=== PATIENT | female | born 1950 | race Hispanic/Latino ===

== ENCOUNTER 2017-03-25 08:31 | Emergency (ER) | payer OTHER ==
[2017-03-25 08:32] VITALS: BMI 34.5
[2017-03-25] MEDS ORDERED: Sodium Chloride 0.9% 1,000 ML IV ONE (08:57)
--- NOTE | 2017-03-25 09:18 | C.PDOC ---
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 Patient states the dizziness is worse with head movement. Reports history of HTN. Denies fever, vision changes, nausea, vomiting, head injury, weakness or numbness. Time Seen by Provider: 03/25/17 08:42 Chief Complaint (Nursing): Dizziness/Lightheaded History Per: Patient History/Exam Limitations: no limitations Onset/Duration Of Symptoms: Sudden Onset (While at work) Current Symptoms Are (Timing): Still Present Past Medical History Reviewed: Historical Data, Nursing Documentation, Vital Signs Vital Signs: Last Vital Signs Temp 97.6 F 03/25/17 11:10 Pulse 60 03/25/17 11:10 Resp 18 03/25/17 11:10 BP 126/78 03/25/17 11:10 Pulse Ox 96 03/25/17 11:10 - Medical History PMH: Asthma, CVA, HTN, Hypercholesterolemia Surgical History: Endoscopy - [facility] Procedures APPLICATION OF SPLINT (12/13/05) DX ULTRASOUND-HEAD/NECK (12/11/14) ENDOSCOPIC CONTROL OF GASTRIC OR DUODENAL BLEEDING (09/30/13) ESOPHAGOGASTRODUODENOSCOPY [EGD] W/CLOSED BIOPSY (09/30/13) PERCUTAN NEEDLE BX OF THYROID GLAND (12/11/14) TETANUS TOXOID ADMINIST (12/12/05) Family History: States: No Known Family Hx - Social History Hx Tobacco Use: No Hx Alcohol Use: No Hx Substance Use: No - Immunization History Hx Tetanus Toxoid Vaccination: No Hx Influenza Vaccination: Yes Hx Pneumococcal Vaccination: No Review Of Systems Except As Marked, All Systems Reviewed And Found Negative. Constitutional: Negative for: Fever Eyes: Negative for: Vision Change Gastrointestinal: Negative for: Nausea, Vomiting Neurological: Positive for: Dizziness. Negative for: Weakness, Numbness Physical Exam - Physical Exam Appears: Well, Non-toxic, No Acute Distress Skin: Warm, Dry Head: Atraumatic, Normacephalic Eye(s): bilateral: Normal Inspection, PERRL, EOMI Oral Mucosa: Moist Neck: Normal, Normal ROM, No Midline Cervical Tenderness, Supple Chest: Symmetrical, No Tenderness Cardiovascular: Rhythm Regular, No Murmur Respiratory: Normal Breath Sounds, No Rales, No Wheezing Extremity: Normal ROM, No Swelling Neurological/Psych: Oriented x3, Normal Speech, Normal Motor ED Course And Treatment - Laboratory Results Result Diagrams: 03/25/17 09:16 03/25/17 09:16 Lab Interpretation: Normal ECG: Interpreted By Me ECG Rhythm: Sinus Rhythm ECG Interpretation: Normal Rate From EC O2 Sat by Pulse Oximetry: 97 (RA) Pulse Ox Interpretation: Normal - CT Scan/US CT - Head Other Rad Studies (CT/US): Read By Radiologist, Radiology Report Reviewed CT/US Interpretation: PROCEDURE: CT HEAD WITHOUT CONTRAST. HISTORY: R/O Bleed. COMPARISON: Comparison made with prior CT scan brain 09/16/2016. . TECHNIQUE: Axial computed tomography images were obtained through the head/ brain without intravenous contrast. Radiation dose: Total exam DLP = 964.63 mGy-cm. This CT exam was performed using one or more of the following dose reduction techniques: Automated exposure control, adjustment of the mA and/or kV according to patient size, and/or use of iterative reconstruction technique. FINDINGS: HEMORRHAGE: No intracranial hemorrhage. BRAIN: Moderate - significant chronic microvascular ischemic changes seen extending peripherally into the deep and subcortical white matter both cerebral hemispheres. There is also extension of these changes into the white matter tracts of both basal nuclei. . No localized area of the suspect encephalomalacia left lateral cerebellar hemisphere subjacent to a craniectomy and cranioplasty vomiting the right lateral occipital calvarium. . Clinical correlation with surgical history recommended. VENTRICLES: No evidence of obstructive hydrocephalus. CALVARIUM : Calvarium otherwise appears intact. PARANASAL SINUSES: Frontal sinuses are hypoplastic. The remaining visualized paranasal sinuses are relatively well- developed. Minor mucosal thickening within the ethmoid air complex. No significant inflammatory changes. MASTOID AIR CELLS: Unremarkable as visualized. No inflammatory changes. OTHER FINDINGS: None. IMPRESSION: No acute intracranial hemorrhage. Moderate - significant chronic microvascular ischemic changes seen extending peripherally into the deep and subcortical white matter both cerebral hemispheres. There is also direct heart revealed toxicity resulting from a coxa and were visible on two views go go any further [place] will probably be region now para-aortic the buttock extension of these changes into the white matter tracts of both basal nuclei. . No localized area of the suspect encephalomalacia left lateral cerebellar hemisphere subjacent to a craniectomy and cranioplasty involving the right lateral occipital calvarium. . Clinical correlation with surgical history recommended. Progress Note: Treated with IVF NSS and meclizine PO. On re-evaluation feeling better, ambulating with steady gait, neuro intact Reassessment Condition: Improved Medical Decision Making Medical Decision Making: PLAN: * CT - Head * EKG * CBC * CMP * Urinalysis * Meclizine PO * Sodium Chloride IV Disposition Counseled Patient/Family Regarding: Studies Performed, Diagnosis, Need For Followup, Rx Given - Disposition Referrals: Rogelio Stewart MD [Staff Provider] - Disposition: HOME/ ROUTINE Disposition Time: 10:20 Condition: IMPROVED Additional Instructions: Follow up with PMD for further evaluation Prescriptions: Meclizine [Meclizine*] 25 mg PO Q8 PRN #10 tab PRN Reason: Dizziness Instructions: Dizziness (ED) Forms: Work Excuse - POA Present On Arrival: None - Clinical Impression Clinical Impression: Dizziness - PA / [employer]ENCE [employer] / Resident Statement MD/DO has reviewed & agrees with the documentation as recorded. - Scribe Statement The provider has reviewed the documentation as recorded by the Scribe Sweta Virgen All medical record entries made by the Scribe were at my direction and personally dictated by me. I have reviewed the chart and agree that the record accurately reflects my personal performance of the history, physical exam, medical decision making, and the department course for this patient. I have also personally directed, reviewed, and agree with the discharge instructions and disposition.
[2017-03-25 09:20] LABS: BASO % 0.6 % (0.0-2.0); EOS # 0.1 K/uL (0.0-0.7); EOS % 1.9 % (0.0-4.0); HEMATOCRIT 44.9 % (34.0-47.0); LYMPH % 29.2 % (20.0-40.0); MEAN CELL VOLUME 85.2 fL (81.0-99.0); MEAN CORPUSCULAR HGB CONC 32.9 g/dL (33.0-37.0); MONO # 0.7 K/uL (0.0-0.8); MONO % 10.7 % (0.0-10.0); RED CELL DISTRIBUTION WIDTH 13.1 % (11.5-14.5); WHITE BLOOD COUNT 6.9 K/uL (4.8-10.8)
[2017-03-25 09:24] LABS: RBC URINE 4 /hpf (0-3); URINE BACTERIA MANY (<OCC); URINE BILIRUBIN NEGATIVE (NEGATIVE); URINE BLOOD NEGATIVE (NEGATIVE); URINE COLOR Yellow (YELLOW); URINE GLUCOSE (UA) NORMAL (Normal); URINE HYALINE CAST 0-2 /lpf (0-2); URINE KETONE NEGATIVE (NEGATIVE); URINE LEUKOCYTE ESTERASE NEG Leu/uL (Negative); URINE PROTEIN NEGATIVE (NEGATIVE); URINE UROBILINOGEN NORMAL mg/dL (0.2-1.0); WBC URINE 2 /hpf (0-5)
[2017-03-25 09:31] LABS: CHLORIDE 106 mmol/L (98-107); POTASSIUM 3.5 mmol/L (3.6-5.2); SODIUM 142 mmol/L (132-148)
[2017-03-25 09:33] LABS: ALB/GLOB RATIO 1.2 (1.0-2.1); ALKALINE PHOSPHATASE 78 U/L (38-126); AST/SGOT 18 U/L (14-36); BILIRUBIN,TOTAL 0.6 mg/dL (0.2-1.3); CARBON DIOXIDE 26 mmol/L (22-30); GFR AFRICAN-AMERICAN > 60; TOTAL PROTEIN 6.8 g/dL (6.3-8.3)
[2017-03-25 09:34] LABS: ALT/SGPT 21 U/L (9-52); BLOOD UREA NITROGEN 20 mg/dL (7-17); CALCIUM 9.1 mg/dl (8.6-10.4); GLUCOSE,RANDOM 108 mg/dL (65-105)
--- NOTE | 2017-03-25 09:49 | CT ---
PROCEDURE: CT HEAD WITHOUT CONTRAST. HISTORY: R/O Bleed COMPARISON: Comparison made with prior CT scan brain 09/16/2016. . TECHNIQUE: Axial computed tomography images were obtained through the head/brain without intravenous contrast. Radiation dose: Total exam DLP = 964.63 mGy-cm. This CT exam was performed using one or more of the following dose reduction techniques: Automated exposure control, adjustment of the mA and/or kV according to patient size, and/or use of iterative reconstruction technique. FINDINGS: HEMORRHAGE: No intracranial hemorrhage. BRAIN: Moderate - significant chronic microvascular ischemic changes seen extending peripherally into the deep and subcortical white matter both cerebral hemispheres. There is also extension of these changes into the white matter tracts of both basal nuclei. . No localized area of the suspect encephalomalacia left lateral cerebellar hemisphere subjacent to a craniectomy and cranioplasty vomiting the right lateral occipital calvarium. . Clinical correlation with surgical history recommended. VENTRICLES: No evidence of obstructive hydrocephalus. CALVARIUM: Calvarium otherwise appears intact. PARANASAL SINUSES: Frontal sinuses are hypoplastic. The remaining visualized paranasal sinuses are relatively well-developed. Minor mucosal thickening within the ethmoid air complex. No significant inflammatory changes. MASTOID AIR CELLS: Unremarkable as visualized. No inflammatory changes. OTHER FINDINGS: None. IMPRESSION: No acute intracranial hemorrhage. Moderate - significant chronic microvascular ischemic changes seen extending peripherally into the deep and subcortical white matter both cerebral hemispheres. There is also extension of these changes into the white matter tracts of both basal nuclei. . No localized area of the suspect encephalomalacia left lateral cerebellar hemisphere subjacent to a craniectomy and cranioplasty involving the right lateral occipital calvarium. . Clinical correlation with surgical history recommended.
[2017-03-25 11:11] VITALS: BP 126/78; PULSE 60; RESP 18; TEMP 97.6
[2017-03-25 11:26] VITALS: O2SAT 97
--- NOTE | 2017-03-26 19:01 | CARD ---
APPROVED REPORT EKG Measurement Heart [id number] <Conclusion> Normal sinus rhythm Normal ECG
== END 2017-03-25 11:40 | disposition home or self-care (01) ==
LOC: C.ER 08:31
DX: R42 Dizziness and giddiness (principal)
CPT/HCPCS: 70450; 80053; 81001; 82948; 85025; 93005; 96360; 99285; J7040

== ENCOUNTER 2017-05-18 10:24 | Inpatient (IN) | payer OTHER, MEDICARE ==
[2017-05-18 10:24] VITALS: BMI 34.5
--- NOTE | 2017-05-18 10:47 | C.PDOC ---
History Of Present Illness 67 y/o FEMALE PRESENTS TO ED WITH C/O NEW ONSET INTERMITTENT LEFT SIDED CHEST PAIN FOR 2 DAYS. PT REPORTS NO EXACERBATING/MODIFYING FACTORS FOR PAIN - WAS PRESENT AT REST, NOT WORSE WITH EXERTION. PT ALSO REPORTS SHE HAD NEAR-SYNCOPAL EPISODE ON THURSDAY (3 DAYS AGO) BUT NOTES SHE DID NOT PASS OUT AND FELT DIFFERENT FROM VERTIGO DIZZINESS. DENIES SOB, NAUSEA, VOMITING, FEVER, CHILLS. DENIES PAST CARDIAC HISTORY. Time Seen by Provider: 05/18/17 10:36 Chief Complaint (Nursing): Chest Pain History Per: Patient History/Exam Limitations: no limitations Onset/Duration Of Symptoms: Days, Intermittent Episodes Current Symptoms Are (Timing): Better Associated Symptoms: denies: Nausea, Dyspnea, Diaphoresis, Syncope Exacerbating Factors: None Recent travel outside of the [place]: No Past Medical History Reviewed: Historical Data, Nursing Documentation, Vital Signs Vital Signs: Last Vital Signs Temp 97.9 F 05/18/17 10:25 Pulse 65 05/18/17 12:24 Resp 18 05/18/17 12:24 BP 111/58 L 05/18/17 12:24 Pulse Ox 98 05/18/17 12:24 - Medical History PMH: Asthma, CVA, HTN, Hypercholesterolemia Surgical History: Endoscopy - [facility] Procedures APPLICATION OF SPLINT (12/13/05) DX ULTRASOUND-HEAD/NECK (12/11/14) ENDOSCOPIC CONTROL OF GASTRIC OR DUODENAL BLEEDING (09/30/13) ESOPHAGOGASTRODUODENOSCOPY [EGD] W/CLOSED BIOPSY (09/30/13) PERCUTAN NEEDLE BX OF THYROID GLAND (12/11/14) TETANUS TOXOID ADMINIST (12/12/05) Family History: States: Unknown Family Hx - Social History Hx Tobacco Use: No Hx Alcohol Use: No Hx Substance Use: No - Immunization History Hx Tetanus Toxoid Vaccination: No Hx Influenza Vaccination: Yes Hx Pneumococcal Vaccination: No Review Of Systems Except As Marked, All Systems Reviewed And Found Negative. Constitutional: Negative for: Fever, Chills Cardiovascular: Positive for: Chest Pain. Negative for: Palpitations Respiratory: Negative for: Cough, Shortness of Breath Skin: Negative for: Rash Neurological: Negative for: Headache, Dizziness Physical Exam - Physical Exam Appears: Non-toxic, No Acute Distress Skin: Normal Color, Warm, Dry Head: Atraumatic, Normacephalic Oral Mucosa: Moist Chest: Symmetrical Cardiovascular: Rhythm Regular, No Murmur Respiratory: Normal Breath Sounds, No Rales, No Rhonchi, No Wheezing Gastrointestinal/Abdominal: Soft, No Tenderness Back: Normal Inspection Neurological/Psych: Oriented x3, Normal Speech, Normal Cognition ED Course And Treatment - Laboratory Results Result Diagrams: 05/18/17 11:30 05/18/17 11:30 ECG: Interpreted By Wy ECG Rhythm: Sinus Rhythm ECG Interpretation: No Changes From Prior Interpretation Of EC03/25/17 Rate From EC O2 Sat by Pulse Oximetry: 95 Pulse Ox Interpretation: Normal - Radiology CXR: Interpreted by Me CXR Interpretation: Yes: No Acute Disease - CT Scan/US CT HEAD Other Rad Studies (CT/US): Read By Radiologist, Radiology Report Reviewed CT/US Interpretation: IMPRESSION: No acute intracranial hemorrhage. Persistent localized encephalomalacia changes right lateral cerebellar hemisphere subjacent to a right occipital/ suboccipital craniectomy defect unchanged. Moderate significant chronic white matter ischemic changes. Moderate volume loss. Progress - Re-Evaluation Re-evaluation Note: 05/18/17 12:04 D/W DR KILLIAN. AWARE OF ER FINDINGS, REQUESTS ADMISSION TO HOSP. WILL CONSULT 05/18/17 12:07 CO RECUR CP. VSS D/W DR ANDERSEN WILL ADMIT 05/18/17 12:15 REPEAT EKG NSR @ 64 UNCH PRIOR - Data Reviewed Data Reviewed: Lab, Diagnostic imaging, EKG, Old records Disposition Counseled Patient/Family Regarding: Studies Performed, Diagnosis - Disposition Disposition: HOME/ ROUTINE Disposition Time: 12:07 Condition: STABLE - POA Present On Arrival: None - Clinical Impression Clinical Impression: Chest pain - Scribe Statement The provider has reviewed the documentation as recorded by the Scribe SM All medical record entries made by the Scribe were at my direction and personally dictated by me. I have reviewed the chart and agree that the record accurately reflects my personal performance of the history, physical exam, medical decision making, and the department course for this patient. I have also personally directed, reviewed, and agree with the discharge instructions and disposition. Decision To Admit - Pt Status Changed To: Hospital Disposition Of: Observation - . Bed Request Type: Telemetry Admitting Physician: Tam Andersen Patient Diagnosis: Chest pain
--- NOTE | 2017-05-18 11:15 | RAD ---
HISTORY: chest pain COMPARISON: Comparison chest 08/22/2016 TECHNIQUE: Chest PA and lateral FINDINGS: LUNGS: Poor inspiration with low lung volumes, crowded bronchovascular markings and mild bibasilar atelectasis. PLEURA: No significant pleural effusion identified. No pneumothorax apparent. CARDIOVASCULAR: Heart size upper limits of normal borderline enlarged. OSSEOUS STRUCTURES: Mild multilevel degenerative spondylosis of thoracic spine. Minor chronic anterior wedge deformities of a few thoracic segments VISUALIZED UPPER ABDOMEN: Normal. OTHER FINDINGS: None. IMPRESSION: Poor inspiration with low lung volumes, crowded bronchovascular markings and mild bibasilar atelectasis.
[2017-05-18 11:38] LABS: BASO % 0.6 % (0.0-2.0); EOS # 0.1 K/uL (0.0-0.7); EOS % 1.9 % (0.0-4.0); HEMATOCRIT 44.5 % (34.0-47.0); LYMPH % 28.3 % (20.0-40.0); MEAN CELL VOLUME 84.5 fL (81.0-99.0); MEAN CORPUSCULAR HGB CONC 33.2 g/dL (33.0-37.0); MEAN PLATELET VOLUME 8.5 fL (7.2-11.7); MONO # 0.6 K/uL (0.0-0.8); MONO % 9.3 % (0.0-10.0); RED CELL DISTRIBUTION WIDTH 13.3 % (11.5-14.5)
[2017-05-18 11:42] LABS: CHLORIDE 100 mmol/L (98-107); POTASSIUM 4.7 mmol/L (3.6-5.2); SODIUM 135 mmol/L (132-148)
[2017-05-18 11:44] LABS: ALB/GLOB RATIO 1.1 (1.0-2.1); AST/SGOT 24 U/L (14-36); BILIRUBIN,TOTAL 0.6 mg/dL (0.2-1.3); BLOOD UREA NITROGEN 20 mg/dL (7-17); CARBON DIOXIDE 29 mmol/L (22-30); GFR AFRICAN-AMERICAN > 60; TOTAL PROTEIN 7.1 g/dL (6.3-8.3)
[2017-05-18 11:45] LABS: ALKALINE PHOSPHATASE 80 U/L (38-126); ALT/SGPT 29 U/L (9-52); CALCIUM 9.3 mg/dl (8.6-10.4); GLUCOSE,RANDOM 102 mg/dL (65-105)
--- NOTE | 2017-05-18 12:00 | CT ---
PROCEDURE: CT HEAD WITHOUT CONTRAST. HISTORY: DIZZY, CHEST PAIN COMPARISON: Comparison made with CT scan brain 03/25/2017 and MRI of the brain dated 10/28/2019 is TECHNIQUE: Axial computed tomography images were obtained through the head/brain without intravenous contrast. Radiation dose: Total exam DLP = 873.37 mGy-cm. This CT exam was performed using one or more of the following dose reduction techniques: Automated exposure control, adjustment of the mA and/or kV according to patient size, and/or use of iterative reconstruction technique. FINDINGS: HEMORRHAGE: No acute parenchymal, subarachnoid nor extra-axial hemorrhage. BRAIN: Previously noted moderate -significant diffuse/confluent chronic white matter ischemic changes of that extend peripherally into the deep and subcortical white matter as well as the white matter tracts of both basal nuclei are again noted though less well delineated on this exam as compared to prior MRI. . Re- demonstrated is localized encephalomalacia right lateral cerebellar hemisphere subjacent to a right occipital/suboccipital the craniectomy and/cranioplasty defect unchanged Moderate volume loss. VENTRICLES: No evidence of obstructive hydrocephalus. CALVARIUM: Calvarium otherwise appears intact. PARANASAL SINUSES: Frontal sinuses hypoplastic unchanged. Remaining visualized paranasal sinuses well-developed. There appears be some minor mucosal thickening both maxillary antra as [place] well as a few ethmoid air cells. MASTOID AIR CELLS: Unremarkable as visualized. No inflammatory changes. OTHER FINDINGS: Changes of bilateral cataract surgery again noted. IMPRESSION: No acute intracranial hemorrhage. Persistent localized encephalomalacia changes right lateral cerebellar hemisphere subjacent to a right occipital/ suboccipital craniectomy defect unchanged Moderate significant chronic white matter ischemic changes. Moderate volume loss.
[2017-05-18] MEDS ORDERED: Nitroglycerin 2% Ointment Foilpak UD TOP STA (12:08)
[2017-05-18] MEDS ORDERED: Nitroglycerin 2% Ointment Foilpak UD TOP ONE (12:24)
--- NOTE | 2017-05-18 17:41 | CP.PCM.HP ---
<James Barcenas - Last Filed: 05/18/17 19:06> History of Present Illness - History of Present Illness History of Present Illness: PGY1 Medicine Note for Dr. Andersen 67 year old female with a PMH of HTN, HLD and unspecified neurological and lung disorders. Patient comes to the hospital today with 3 day history of chest pain and near syncope. The patient is works as an OR nurse and states during a case on thursday05/15/17, she was working and needed to call for someone else to take her place. She got extremely lightheaded and felt like she was about to pass out , although she denies ever losing consciousness. The patient states that she has had chest pain intermittently over the last 2 to 3 weeks and at least once every day over the past 3 days. The pain is burning in nature and located on the left side of her chest. It does not radiate anywhere. The pain can happen any time, including rest, but seems to happen more often when she is doing anything physical, like while she was working on thursday05/15/17. The pain lasts approximately 10 seconds at a time. She states that she has become diaphoretic multiple times but it does not happen every time she has the chest pain. The patient states that the pain resolves completely when she lays down. Patient recently finished a prescription for Cipro for treatment of an UTI. Patient was in ER approximately one month ago for dizziness, but patient states that the symptoms this time are completely different. Patient denies f/c, n/v, d/c, sob, vision changes, weakness, dizziness, cough, [place]O, rash, urinary symptoms. PMH: HTN, HLD, unspecified neurological and lung disorders PSH: FNA of thyroid Family: Father - in his sleep age 70s; mom at age of 54 due to DC/ stroke. Social: denies tobacco, alcohol and illicit drug use. Allergies: Penicillins Present on Admission - Present on Admission Any Indicators Present on Admission: No Review of Systems - Review of Systems All systems: reviewed and no additional remarkable complaints except - Constitutional Constitutional: As Per HPI - EENT Eyes: As Per HPI Ears: As Per HPI Nose/Mouth/Throat: As Per HPI - Breasts Breasts: As Per HPI - Cardiovascular Cardiovascular: As Per HPI - Respiratory Respiratory: As Per HPI - Gastrointestinal Gastrointestinal: As Per HPI - Genitourinary Genitourinary: As Per HPI - Menstruation Menstruation: As Per HPI - Musculoskeletal Musculoskeletal: As Per HPI - Integumentary Integumentary: As Per HPI - Neurological Neurological: As Per HPI - Psychiatric Psychiatric: As Per HPI - Endocrine Endocrine: As Per HPI - Hematologic/Lymphatic Hematologic: As Per HPI Past Patient History - Past Medical History & Family History Past Medical History?: Yes - Past Social History Smoking Status: Never Smoked - CARDIAC Hx Hypercholesterolemia: Yes Hx Hypertension: Yes - PULMONARY Hx Asthma: Yes - NEUROLOGICAL Hx Neurological Disorder: Yes HX Cerebrovascular Accident: No Other/Comment: Trigemal neuralgia - HEENT Hx HEENT Problems: Yes Hx Cataracts: Yes (BOTH EYES) - RENAL Hx Chronic Kidney Disease: No - ENDOCRINE/METABOLIC Hx Endocrine Disorders: Yes Other/Comment: THYROID NODULE - HEMATOLOGICAL/ONCOLOGICAL Hx Blood Disorders: No - INTEGUMENTARY Hx Dermatological Problems: No - MUSCULOSKELETAL/RHEUMATOLOGICAL Hx Musculoskeletal Disorders: Yes Hx Back Pain: Yes Hx Falls: No - GASTROINTESTINAL Hx Gastrointestinal Disorders: Yes Hx Gastroesophageal Reflux: Yes Hx Hemorrhoids: Yes - GENITOURINARY/GYNECOLOGICAL Hx Genitourinary Disorders: No - PSYCHIATRIC Hx Substance Use: No - SURGICAL HISTORY Hx Surgeries: Yes Other/Comment: HEAD SX FOR TRIGEMINAL NERVE - ANESTHESIA Hx Anesthesia: Yes Hx Anesthesia Reactions: No Meds Allergies/Adverse Reactions: Allergies Allergy/AdvReac Type Severity Reaction Status Date / Time Penicillins Allergy RASH Verified 09/16/16 18:31 Physical Exam - Constitutional Appears: Well, No Acute Distress - Head Exam Head Exam: ATRAUMATIC, NORMOCEPHALIC - Eye Exam Eye Exam: EOMI, Normal appearance - ENT Exam ENT Exam: Mucous Membranes Moist - Respiratory Exam Respiratory Exam: Clear to Auscultation Bilateral, NORMAL BREATHING PATTERN. absent: Accessory Muscle Use, Wheezes, Respiratory Distress - Cardiovascular Exam Cardiovascular Exam: REGULAR RHYTHM, +S1, +S2 - GI/Abdominal Exam GI & Abdominal Exam: Normal Bowel Sounds, Soft. absent: Diminished Bowel Sounds , Tenderness - Extremities Exam Extremities exam: Negative for: calf tenderness, pedal edema - Neurological Exam Neurological exam: Alert, Oriented x3 - Psychiatric Exam Psychiatric exam: Normal Affect, Normal Mood - Skin Skin Exam: Dry, Normal Color, Warm Results - Vital Signs Recent Vital Signs: Last Vital Signs Temp 97.9 F 05/18/17 10:25 Pulse 76 05/18/17 14:10 Resp 20 05/18/17 14:10 BP 100/59 L 05/18/17 14:10 Pulse Ox 96 05/18/17 14:10 - Labs Result Diagrams: 05/18/17 11:30 05/18/17 11:30 Assessment & Plan - Assessment and Plan (Free Text) Assessment: Chest Pain/Near Syncope Dr. Stewrat Cardiology Consult - help appreciated. EKG - NSR Troponins neg x 1, F/U remaining troponins Started Crestor 10mg PO daily Started Aspirin 81mg PO daily Nitro 0.4mg SL Q5min PRN F/U Thyroid, Lipid and HgbA1c Will Call Dr. Stewart to figure out Home Medications Prophylactic Care Started Heparin 5000 SC Q8H Started on Pepcid 20mg PO daily Case discussed with Dr. Nathaly Barcenas PGY1 - Date & Time Date: 05/18/17 Time: 12:03 <Tam Andersen - Last Filed: 05/19/17 14:55> Results - Vital Signs Recent Vital Signs: Last Vital Signs Temp 97.5 F L 05/19/17 08:21 Pulse 60 05/19/17 08:21 Resp 20 05/19/17 08:21 BP 134/79 05/19/17 08:21 Pulse Ox 96 05/19/17 08:21 - Labs Result Diagrams: 05/19/17 06:07 05/19/17 06:07 Labs: Laboratory Results - last 24 hr 05/18/17 05/19/17 05/19/17 19:59 01:53 06:07 WBC 5.4 RBC 5.26 H Hgb 14.8 Hct 44.0 MCV 83.7 MCH 28.2 MCHC 33.7 RDW 13.3 Plt Count 185 MPV 9.1 Neut % (Auto) 48.2 L Lymph % (Auto) 39.4 [place] % (Auto) 8.4 Eos % (Auto) 3.7 Baso % (Auto) 0.3 Neut # 2.6 Lymph # 2.1 [place] # 0.4 Eos # 0.2 Baso # 0.0 Sodium Potassium Chloride Carbon Dioxide Anion Gap BUN Creatinine Est GFR ( Amer) Est GFR (Non-Af Amer) Random Glucose Hemoglobin A1c Calcium Total Bilirubin AST ALT Alkaline Phosphatase Total Creatine Kinase 89 69 CK-MB (Mass) 0.96 0.67 Troponin I, Quant < 0.0120 < 0.0120 Total Protein Albumin Globulin Albumin/Globulin Ratio Triglycerides Cholesterol LDL Cholesterol Direct HDL Cholesterol Free T4 TSH 3rd Generation 05/19/17 05/19/17 05/19/17 06:07 06:07 06:07 WBC RBC Hgb Hct MCV MCH MCHC RDW Plt Count MPV Neut % (Auto) Lymph % (Auto) [place] % (Auto) Eos % (Auto) Baso % (Auto) Neut # Lymph # [place] # Eos # Baso # Sodium 140 Potassium 3.7 Chloride 103 Carbon Dioxide 27 Anion Gap 14 BUN 18 H Creatinine 0.8 Est GFR ( Amer) > 60 Est GFR (Non-Af Amer) > 60 Random Glucose 106 H Hemoglobin A1c 5.8 Calcium 9.0 Total Bilirubin 0.5 AST 21 ALT 26 Alkaline Phosphatase 81 Total Creatine Kinase CK-MB (Mass) Troponin I, Quant Total Protein 6.7 Albumin 3.5 Globulin 3.2 Albumin/Globulin Ratio 1.1 Triglycerides 220 H Cholesterol 226 H LDL Cholesterol Direct 157 H HDL Cholesterol 32 Free T4 1.03 TSH 3rd Generation 2.26 Attending/Attestation - Attestation I have personally seen and examined this patient.: Yes I have fully participated in the care of the patient.: Yes I have reviewed all pertinent clinical information: Yes Notes (Text): 05/19/17 14:54 Patient was seen and examined at bedside at the time of admission We will avoid the patient to rule out acute coronary syndrome We will request cardiology evaluation for the patient I discussed the plan of care with the resident and agree with the history and physical and assessment/plan documented by the resident.
[2017-05-19 06:32] LABS: BASO % 0.3 % (0.0-2.0); EOS # 0.2 K/uL (0.0-0.7); EOS % 3.7 % (0.0-4.0); LYMPH # 2.1 K/uL (1.0-4.3); LYMPH % 39.4 % (20.0-40.0); MEAN CELL VOLUME 83.7 fL (81.0-99.0); MEAN CORPUSCULAR HEMOGLOBIN 28.2 pg (27.0-31.0); MEAN CORPUSCULAR HGB CONC 33.7 g/dL (33.0-37.0); MEAN PLATELET VOLUME 9.1 fL (7.2-11.7); MONO # 0.4 K/uL (0.0-0.8); MONO % 8.4 % (0.0-10.0); NRBC % 0.1 % (0.0-2.0); RED CELL DISTRIBUTION WIDTH 13.3 % (11.5-14.5); WHITE BLOOD COUNT 5.4 K/uL (4.8-10.8)
[2017-05-19 07:18] LABS: CHLORIDE 103 mmol/L (98-107)
[2017-05-19 07:19] LABS: POTASSIUM 3.7 mmol/L (3.6-5.2); SODIUM 140 mmol/L (132-148)
[2017-05-19 07:21] LABS: ALB/GLOB RATIO 1.1 (1.0-2.1); AST/SGOT 21 U/L (14-36); BILIRUBIN,TOTAL 0.5 mg/dL (0.2-1.3); BLOOD UREA NITROGEN 18 mg/dL (7-17); CARBON DIOXIDE 27 mmol/L (22-30); CHOLESTEROL 226 mg/dL (0-199); GFR AFRICAN-AMERICAN > 60; TOTAL PROTEIN 6.7 g/dL (6.3-8.3)
[2017-05-19 07:22] LABS: ALKALINE PHOSPHATASE 81 U/L (38-126); ALT/SGPT 26 U/L (9-52); GLUCOSE,RANDOM 106 mg/dL (65-105)
[2017-05-19 07:25] LABS: FREE T4 1.03 ng/dL (0.78-2.19)
[2017-05-19 07:39] LABS: THYROID STIMULATING HORMONE 2.26 mIU/L (0.46-4.68)
--- NOTE | 2017-05-19 16:53 | CARD ---
APPROVED REPORT EXAM: Two-dimensional and M-mode echocardiogram with Doppler and color Doppler. Other Information Quality : GoodRhythm : NSR INDICATION Dizziness and Vertigo Chest Pain RISK FACTORS Hypertension Hyperlipidemia 2D DIMENSIONS IVSd0.9 (0.7-1.1cm)LVDd4.1 (3.9-5.9cm) PWd0.9 (0.7-1.1cm)LVDs2.8 (2.5-4.0cm) FS (%) 32.6 %LVEF (%)61.5 (>50%) M-Mode DIMENSIONS Left Atrium (MM)3.37 (2.5-4.0cm)IVSd1.44 (0.7-1.1cm) Aortic Root3.43 (2.2-3.7cm)LVDd4.83 (4.0-5.6cm) Aortic Cusp Exc.1.79 (1.5-2.0cm)PWd1.02 (0.7-1.1cm) FS (%) 48 %LVDs2.50 (2.0-3.8cm) LVEF (%)79 (>50%) Mitral Valve MV E Limwqdtl38.3cm/sMV A Dfahefbx543.4cm/sE/A ratio0.7 TDI E/Lateral E'0.0E/Medial E'0.0 Tricuspid Valve TR Peak Axithxis922qx/sTR Peak Gr.2zwYgRHPA6mlMh LEFT VENTRICLE The left ventricle is normal size. There is normal left ventricular wall thickness. Left ventricle systolic function is normal. The Ejection Fraction is 60-65%. There is normal LV segmental wall motion. Tissue Doppler imaging reveals abnormal left ventricular diastolic dysfunction. RIGHT VENTRICLE The right ventricle is normal size. There is normal right ventricular wall thickness. The right ventricular systolic function is normal. ATRIA The left atrium size is normal. The right atrium size is normal. The interatrial septum is intact with no evidence for an atrial septal defect. AORTIC VALVE The aortic valve is normal in structure. No aortic regurgitation is present. There is no aortic valvular stenosis. There is no aortic valvular vegetation. MITRAL VALVE The mitral valve is normal in structure. A mild mitral valve prolapse is present. There is no mitral valve stenosis. Mitral regurgitation is trace to mild. TRICUSPID VALVE The tricuspid valve is normal in structure. There is no tricuspid valve regurgitation noted. There is no tricuspid valve prolapse or vegetation. There is no tricuspid valve stenosis. PULMONIC VALVE The pulmonic valve is not well visualized. There is no pulmonic valvular regurgitation. GREAT VESSELS The aortic root is normal in size. PERICARDIAL EFFUSION There is no significant pericardial effusion. <Conclusion> Left ventricle systolic function is normal. The Ejection Fraction is 60-65%. Diastolic dysfunction. No aortic regurgitation is present. A mild mitral valve prolapse is present. Mitral regurgitation is trace to mild. There is no tricuspid valve regurgitation noted. There is no pulmonic valvular regurgitation.
--- NOTE | 2017-05-19 18:07 | CP.PCM.PN ---
<James Barcenas - Last Filed: 05/19/17 18:02> Subjective - Date & Time of Evaluation Date of Evaluation: 05/19/17 Time of Evaluation: 10:40 - Subjective Subjective: PGY [address] Andersen Patient seen and examined this morning at bedside. Patient is in good spirits and states she is feeling much better. patient states that she was able to sleep all night and is no longer experiencing cramps in her thighs or feet. She denies any lightheadedness or sensation that she is going to pass out. Denies f/ c, n/v, d/c, sob or cp. Objective - Vital Signs/Intake and Output Vital Signs (last 24 hours): Temp Pulse Resp BP Pulse Ox 98.2 F 60 18 127/82 96 05/19/17 16:00 05/19/17 16:00 05/19/17 16:00 05/19/17 16:00 05/19/17 16:00 Intake and Output: 05/19/17 05/19/17 06:59 18:59 Intake Total 660 400 Balance 660 400 - Medications Medications: Current Medications Amlodipine Besylate (Norvasc) 5 mg PO DAILY [facility] Aspirin (Aspirin Chewable) 81 mg PO DAILY [facility] Last Admin: 05/19/17 11:31 Dose: 81 mg Carbamazepine (Tegretol-Xr) 300 mg PO Q48H [facility] Last Admin: 05/19/17 11:33 Dose: Not Given Famotidine (Pepcid) 20 mg PO DAILY [facility] Last Admin: 05/19/17 11:31 Dose: 20 mg Heparin Sodium (Porcine) (Heparin) 5,000 units SC Q8 [facility] Last Admin: 05/19/17 13:13 Dose: 5,000 units Nebivolol (Bystolic) 10 mg PO DAILY [facility] Last Admin: 05/19/17 11:32 Dose: 10 mg Nitroglycerin (Nitrostat Sl Tab) 0.4 mg SL Q5M PRN PRN Reason: chest pain Rosuvastatin Calcium (Crestor) 10 mg PO HS [facility] Last Admin: 05/18/17 21:48 Dose: 10 mg - Labs Labs: 05/19/17 06:07 05/19/17 06:07 - Constitutional Appears: Non-toxic, No Acute Distress - Head Exam Head Exam: ATRAUMATIC, NORMOCEPHALIC - Eye Exam Eye Exam: EOMI, Normal appearance - ENT Exam ENT Exam: Mucous Membranes Moist - Respiratory Exam Respiratory Exam: NORMAL BREATHING PATTERN. absent: Accessory Muscle Use, Respiratory Distress - Cardiovascular Exam Cardiovascular Exam: REGULAR RHYTHM - GI/Abdominal Exam GI & Abdominal Exam: Soft. absent: Distended, Guarding, Tenderness - Extremities Exam Extremities Exam: absent: Calf Tenderness, Pedal Edema - Neurological Exam Neurological Exam: Alert, Awake - Psychiatric Exam Psychiatric exam: Normal Affect, Normal Mood - Skin Skin Exam: Dry, Normal Color, Warm Assessment and Plan - Assessment and Plan (Free Text) Plan: Chest Pain/Near Syncope Dr. Stewart Cardiology Consult - help appreciated. EKG - NSR Troponins neg x 3 Crestor 10mg PO daily Aspirin 81mg PO daily Nitro 0.4mg SL Q5min PRN T4 1.03; TSH 2.26 Triglyceride 220; Chol. 226; LDL 157; HDL 32 HgbA1c 5.[address] Stewart to figure out Home Medications - Restarted patient's home medications, - Bystolic 10mg once daily - Amlodipine 5mg once daily - Carbamezipine 300mg once every other day - some inhaler but unknown dosage Attempted to call patient's pharmacy to verify medications but the pharmacy name given, [facility], does not have any record of patient. Patient gave a phone number , but the number is not currently in service. ECHO(05/18/17): EF 60-65%, Diastolic dysfunction, No aortic regurg., mild mitral valve prolapse, mild mitral regurg., no tricuspid or pulmonic valvular regurg. F/U Carotid US Prophylactic Care Heparin 5000 SC Q8H Pepcid 20mg PO daily Case discussed with Dr. Nathaly Ramirez Swapna PGY1 <Tam Andersen - Last Filed: 05/20/17 09:52> Objective - Vital Signs/Intake and Output Vital Signs (last 24 hours): Temp Pulse Resp BP Pulse Ox 98.0 F 61 20 135/81 96 05/20/17 07:40 05/20/17 07:40 05/20/17 07:40 05/20/17 07:40 05/20/17 07:40 Intake and Output: 05/20/17 05/20/17 06:59 18:59 Intake Total 320 Balance 320 - Medications Medications: Current Medications Amlodipine Besylate (Norvasc) 5 mg PO DAILY [facility] Last Admin: 05/20/17 09:30 Dose: 5 mg Aspirin (Aspirin Chewable) 81 mg PO DAILY [facility] Last Admin: 05/20/17 09:30 Dose: 81 mg Carbamazepine (Tegretol-Xr) 300 mg PO Q48H [facility] Last Admin: 05/19/17 11:33 Dose: Not Given Famotidine (Pepcid) 20 mg PO DAILY [facility] Last Admin: 05/20/17 09:30 Dose: 20 mg Heparin Sodium (Porcine) (Heparin) 5,000 units SC Q8 [facility] Last Admin: 05/20/17 06:13 Dose: 5,000 units Nebivolol (Bystolic) 10 mg PO DAILY [facility] Last Admin: 05/20/17 09:30 Dose: 10 mg Nitroglycerin (Nitrostat Sl Tab) 0.4 mg SL Q5M PRN PRN Reason: chest pain Rosuvastatin Calcium (Crestor) 10 mg PO HS [facility] Last Admin: 05/19/17 21:03 Dose: 10 mg - Labs Labs: 05/20/17 07:08 05/20/17 07:08 Attending/Attestation - Attestation I have personally seen and examined this patient.: Yes I have fully participated in the care of the patient.: Yes I have reviewed all pertinent clinical information, including history, physical exam and plan: Yes Notes (Text): 05/20/17 09:51 Patient was seen and examined at bedside with the resident Patient appears comfortable and denies any chest pain or dizziness She stated that she had a good night sleep last night. Cardiology workup is in progress Will discuss with Dr. Stewart the for disposition I agree with the history and physical and assessment/plan documented by the resident.
[2017-05-20 07:30] LABS: BASO % 0.5 % (0.0-2.0); EOS # 0.2 K/uL (0.0-0.7); EOS % 3.3 % (0.0-4.0); HEMATOCRIT 43.6 % (34.0-47.0); LYMPH # 2.2 K/uL (1.0-4.3); LYMPH % 38.7 % (20.0-40.0); MEAN CELL VOLUME 84.2 fL (81.0-99.0); MEAN CORPUSCULAR HEMOGLOBIN 27.8 pg (27.0-31.0); MEAN PLATELET VOLUME 9.1 fL (7.2-11.7); MONO # 0.5 K/uL (0.0-0.8); MONO % 9.6 % (0.0-10.0); NRBC % 0.1 % (0.0-2.0); RED CELL DISTRIBUTION WIDTH 13.2 % (11.5-14.5); WHITE BLOOD COUNT 5.6 K/uL (4.8-10.8)
[2017-05-20 07:35] LABS: CHLORIDE 105 mmol/L (98-107)
[2017-05-20 07:36] LABS: SODIUM 140 mmol/L (132-148)
[2017-05-20 07:37] LABS: POTASSIUM 3.9 mmol/L (3.6-5.2)
[2017-05-20 07:39] LABS: ALB/GLOB RATIO 1.1 (1.0-2.1); ALKALINE PHOSPHATASE 75 U/L (38-126); ALT/SGPT 27 U/L (9-52); AST/SGOT 19 U/L (14-36); BILIRUBIN,TOTAL 0.5 mg/dL (0.2-1.3); BLOOD UREA NITROGEN 20 mg/dL (7-17); CARBON DIOXIDE 28 mmol/L (22-30); GFR AFRICAN-AMERICAN > 60; GLUCOSE,RANDOM 102 mg/dL (65-105); TOTAL PROTEIN 6.6 g/dL (6.3-8.3)
[2017-05-20 07:40] LABS: CALCIUM 8.8 mg/dl (8.6-10.4)
--- NOTE | 2017-05-20 11:46 | VASCLAB ---
PROCEDURE: HISTORY: Near syncope COMPARISON: None available. TECHNIQUE: Grayscale and duplex Doppler evaluation of the cervical carotid and vertebral arteries were performed. The common carotid, carotid bifurcations and cervical Internal Carotid Artery (ICA) and proximal External Carotid Artery (ECA) were evaluated. The vertebral arteries were evaluated for gross patency and flow direction. Report prepared by MIGUELINA Moser FINDINGS: RIGHT CAROTID ARTERIES: 1. Common Carotid Artery: No significant focal plaque formation of the right common carotid artery. Maximum Peak Systolic velocity: 91 cm/sec: End-diastolic velocity 17 cm/sec. 2. Carotid Bifurcation: plaque formation. Maximum Peak Systolic velocity: 53 cm/sec: End-diastolic velocity 12 cm/sec. 3. Internal Carotid Artery: Plaque description: 3.1. Proximal Segment: Peak systolic velocity 51 cm/sec: End-diastolic velocity 14 cm/sec - % stenosis 0-15% 3.2. Middle Segment: Peak systolic velocity 85 cm/sec: End-diastolic velocity 28 cm/sec - % stenosis 0-15% 3.3. Distal Segment: Peak systolic velocity 90 cm/sec: End-diastolic velocity 30 cm/sec - % stenosis 0-15% 4. External Carotid Artery: No significant focal plaque formation. Peak systolic velocity 65 cm/sec 5. ICA/CCA Ratio: 1.4 LEFT CAROTID ARTERIES: 1. Common Carotid Artery: No significant focal plaque formation of the left common carotid artery. Maximum Peak Systolic velocity: 99 cm/sec: End-diastolic velocity 23 cm/sec. 2. Carotid Bifurcation: Calcific plaque formation. Maximum Peak Systolic velocity: 60 cm/sec: End-diastolic velocity 15 cm/sec. 3. Internal Carotid Artery: Plaque description: Minimal calcific. 3.1. Proximal Segment: Peak systolic velocity 92 cm/sec: End-diastolic velocity 21 cm/sec - % stenosis 0-15% 3.2. Middle Segment: Peak systolic velocity cm/sec: End-diastolic velocity cm/sec - % stenosis 0-15% 3.3. Distal Segment: Peak systolic velocity cm/sec: End-diastolic velocity cm/sec - % stenosis 0-15% 4. External Carotid Artery: No significant focal plaque formation. Peak systolic velocity 88 cm/sec 5. ICA/CCA Ratio: 1.2 VERTEBRAL ARTERIES: 1. Right Vertebral Artery: The right vertebral artery flow direction is antegrade. 2. Left Vertebral Artery: The left vertebral artery flow direction is antegrade. OTHER FINDINGS: 1. Right Brachial Blood pressure: 135 mmHg. 2. Left Brachial Blood pressure: 130 mmHg. IMPRESSION: RIGHT: Duplex scan does not suggest hemodynamically significant stenosis of the right extracranial carotid arteries. LEFT: Duplex scan does not suggest hemodynamically significant stenosis of the left extracranial carotid arteries.
--- NOTE | 2017-05-20 16:02 | CP.PCM.PN ---
<James Barcenas - Last Filed: 05/20/17 16:05> Subjective - Date & Time of Evaluation Date of Evaluation: 05/20/17 Time of Evaluation: 16:00 - Subjective Subjective: PGY1 Medicine Note for Dr. Andersen Patient seen and examined this morning at bedside. Patient states that she is feeling well. She was able to get up and walk to the bathroom without getting lightheaded or dizzy, but states that she was a little unsteady. She has no other complaints at this time. Denies f/c, n/v/d, sob or cp. Objective - Vital Signs/Intake and Output Vital Signs (last 24 hours): Temp Pulse Resp BP Pulse Ox 98.0 F 61 20 135/81 96 05/20/17 07:40 05/20/17 07:40 05/20/17 07:40 05/20/17 07:40 05/20/17 07:40 Intake and Output: 05/20/17 05/20/17 06:59 18:59 Intake Total 320 Balance 320 - Medications Medications: Current Medications Amlodipine Besylate (Norvasc) 5 mg PO DAILY [facility] Last Admin: 05/20/17 09:30 Dose: 5 mg Aspirin (Aspirin Chewable) 81 mg PO DAILY [facility] Last Admin: 05/20/17 09:30 Dose: 81 mg Carbamazepine (Tegretol-Xr) 300 mg PO Q48H [facility] Last Admin: 05/19/17 11:33 Dose: Not Given Famotidine (Pepcid) 20 mg PO DAILY [facility] Last Admin: 05/20/17 09:30 Dose: 20 mg Heparin Sodium (Porcine) (Heparin) 5,000 units SC Q8 [facility] Last Admin: 05/20/17 06:13 Dose: 5,000 units Nebivolol (Bystolic) 10 mg PO DAILY [facility] Last Admin: 05/20/17 09:30 Dose: 10 mg Nitroglycerin (Nitrostat Sl Tab) 0.4 mg SL Q5M PRN PRN Reason: chest pain Rosuvastatin Calcium (Crestor) 10 mg PO HS [facility] Last Admin: 05/19/17 21:03 Dose: 10 mg - Labs Labs: 05/20/17 07:08 05/20/17 07:08 - Constitutional Appears: Non-toxic, No Acute Distress - Head Exam Head Exam: ATRAUMATIC, NORMOCEPHALIC - Eye Exam Eye Exam: EOMI, Normal appearance - ENT Exam ENT Exam: Mucous Membranes Moist - Respiratory Exam Respiratory Exam: Clear to Ausculation Bilateral, NORMAL BREATHING PATTERN. absent: Accessory Muscle Use, Respiratory Distress - Cardiovascular Exam Cardiovascular Exam: REGULAR RHYTHM, +S1, +S2 - GI/Abdominal Exam GI & Abdominal Exam: Soft, Normal Bowel Sounds. absent: Distended, Tenderness - Back Exam Back Exam: absent: CVA tenderness (L), CVA tenderness (R) - Neurological Exam Neurological Exam: Alert, Awake, Oriented x3 - Psychiatric Exam Psychiatric exam: Normal Affect, Normal Mood - Skin Skin Exam: Dry, Normal Color, Warm Assessment and Plan - Assessment and Plan (Free Text) Plan: Chest Pain/Near Syncope Dr. Stewart Cardiology Consult - help appreciated. Scheduled for Stress Test - L[facility]ASCAN - tomorrow. NPO after midnight except meds. EKG - NSR Troponins neg x 3 Crestor 10mg PO daily Aspirin 81mg PO daily Nitro 0.4mg SL Q5min PRN T4 1.03; TSH 2.26 Triglyceride 220; Chol. 226; LDL 157; HDL 32 HgbA1c 5.[address] Stewart to figure out Home Medications - Restarted patient's home medications, - Bystolic 10mg once daily - Amlodipine 5mg once daily - Carbamezipine 300mg once every other day - some inhaler but unknown dosage 05/19/17 - Attempted to call patient's pharmacy to verify medications but the pharmacy name given, [facility], does not have any record of patient. Patient gave a phone number , but the number is not currently in service. ECHO(05/18/17): EF 60-65%, Diastolic dysfunction, No aortic regurg., mild mitral valve prolapse, mild mitral regurg., no tricuspid or pulmonic valvular regurg. Prophylactic Care Heparin 5000 SC Q8H Pepcid 20mg PO daily Case discussed with Dr. Nathaly Barcenas PGY1 <Tam Andersen - Last Filed: 05/20/17 16:48> Objective - Vital Signs/Intake and Output Vital Signs (last 24 hours): Temp Pulse Resp BP Pulse Ox 98.6 F 96 H 18 149/82 95 05/20/17 16:00 05/20/17 16:00 05/20/17 16:00 05/20/17 16:00 05/20/17 16:00 - Medications Medications: Current Medications Amlodipine Besylate (Norvasc) 5 mg PO DAILY [facility] Last Admin: 05/20/17 09:30 Dose: 5 mg Aspirin (Aspirin Chewable) 81 mg PO DAILY [facility] Last Admin: 05/20/17 09:30 Dose: 81 mg Carbamazepine (Tegretol-Xr) 300 mg PO Q48H [facility] Last Admin: 05/19/17 11:33 Dose: Not Given Famotidine (Pepcid) 20 mg PO DAILY [facility] Last Admin: 05/20/17 09:30 Dose: 20 mg Heparin Sodium (Porcine) (Heparin) 5,000 units SC Q8 [facility] Last Admin: 05/20/17 06:13 Dose: 5,000 units Nebivolol (Bystolic) 10 mg PO DAILY [facility] Last Admin: 05/20/17 09:30 Dose: 10 mg Nitroglycerin (Nitrostat Sl Tab) 0.4 mg SL Q5M PRN PRN Reason: chest pain Rosuvastatin Calcium (Crestor) 10 mg PO HS [facility] Last Admin: 05/19/17 21:03 Dose: 10 mg Attending/Attestation - Attestation I have personally seen and examined this patient.: Yes I have fully participated in the care of the patient.: Yes I have reviewed all pertinent clinical information, including history, physical exam and plan: Yes Notes (Text): 05/20/17 16:47 Patient seen and examined at bedside with the resident. The patient does not complain of any chest pain or dizziness. I discussed with Dr. Stewart. The plan is for nuclear stress test tomorrow Continue current medical management I discussed the plan of care with the resident and agree with the assessment and documented head.
--- NOTE | 2017-05-20 23:34 | CP.PCM.CON ---
History of Present Illness - History of Present Illness History of Present Illness: Patient seen and evaluted C/O Left sided chest pain with exertion Check stress test in am Past Patient History - Past Medical History & Family History Past Medical History?: Yes - Past Social History Smoking Status: Never Smoked - CARDIAC Hx Hypercholesterolemia: Yes Hx Hypertension: Yes - PULMONARY Hx Asthma: Yes - NEUROLOGICAL Hx Neurological Disorder: Yes HX Cerebrovascular Accident: No Other/Comment: Trigemal neuralgia - HEENT Hx HEENT Problems: Yes Hx Cataracts: Yes (BOTH EYES) - RENAL Hx Chronic Kidney Disease: No - ENDOCRINE/METABOLIC Hx Endocrine Disorders: Yes Other/Comment: THYROID NODULE - HEMATOLOGICAL/ONCOLOGICAL Hx Blood Disorders: No - INTEGUMENTARY Hx Dermatological Problems: No - MUSCULOSKELETAL/RHEUMATOLOGICAL Hx Falls: No - GASTROINTESTINAL Hx Gastrointestinal Disorders: Yes Hx Gastroesophageal Reflux: Yes Hx Hemorrhoids: Yes - GENITOURINARY/GYNECOLOGICAL Hx Genitourinary Disorders: No - PSYCHIATRIC Hx Substance Use: No - SURGICAL HISTORY Hx Surgeries: Yes Other/Comment: HEAD SX FOR TRIGEMINAL NERVE - ANESTHESIA Hx Anesthesia: Yes Hx Anesthesia Reactions: No Meds Allergies/Adverse Reactions: Allergies Allergy/AdvReac Type Severity Reaction Status Date / Time Penicillins Allergy RASH Verified 09/16/16 18:31 - Medications Medications: Current Medications Amlodipine Besylate (Norvasc) 5 mg PO DAILY [facility] Last Admin: 05/20/17 09:30 Dose: 5 mg Aspirin (Aspirin Chewable) 81 mg PO DAILY [facility] Last Admin: 05/20/17 09:30 Dose: 81 mg Carbamazepine (Tegretol-Xr) 300 mg PO Q48H [facility] Last Admin: 05/19/17 11:33 Dose: Not Given Famotidine (Pepcid) 20 mg PO DAILY [facility] Last Admin: 05/20/17 09:30 Dose: 20 mg Heparin Sodium (Porcine) (Heparin) 5,000 units SC Q8 [facility] Last Admin: 05/20/17 22:00 Dose: 5,000 units Nebivolol (Bystolic) 10 mg PO DAILY [facility] Last Admin: 05/20/17 09:30 Dose: 10 mg Nitroglycerin (Nitrostat Sl Tab) 0.4 mg SL Q5M PRN PRN Reason: chest pain Rosuvastatin Calcium (Crestor) 10 mg PO HS [facility] Last Admin: 05/20/17 22:00 Dose: 10 mg Results - Vital Signs Recent Vital Signs: Last Vital Signs Temp 98.6 F 05/20/17 16:00 Pulse 96 H 05/20/17 16:00 Resp 18 05/20/17 16:00 BP 149/82 05/20/17 16:00 Pulse Ox 95 05/20/17 16:00 - Labs Result Diagrams: 05/20/17 07:08 05/20/17 07:08
[2017-05-21 07:33] LABS: BASO % 0.4 % (0.0-2.0); EOS # 0.2 K/uL (0.0-0.7); EOS % 3.2 % (0.0-4.0); HEMATOCRIT 43.6 % (34.0-47.0); LYMPH # 2.3 K/uL (1.0-4.3); LYMPH % 35.2 % (20.0-40.0); MEAN CELL VOLUME 84.3 fL (81.0-99.0); MEAN CORPUSCULAR HEMOGLOBIN 27.6 pg (27.0-31.0); MEAN CORPUSCULAR HGB CONC 32.8 g/dL (33.0-37.0); MEAN PLATELET VOLUME 8.9 fL (7.2-11.7); MONO # 0.5 K/uL (0.0-0.8); MONO % 8.4 % (0.0-10.0); NRBC % 0.1 % (0.0-2.0); RED CELL DISTRIBUTION WIDTH 13.4 % (11.5-14.5); WHITE BLOOD COUNT 6.5 K/uL (4.8-10.8)
[2017-05-21 07:40] LABS: CHLORIDE 107 mmol/L (98-107); SODIUM 139 mmol/L (132-148)
[2017-05-21 07:42] LABS: GFR AFRICAN-AMERICAN > 60
[2017-05-21 07:43] LABS: ALKALINE PHOSPHATASE 75 U/L (38-126); ALT/SGPT 25 U/L (9-52); AST/SGOT 23 U/L (14-36); BILIRUBIN,TOTAL 0.5 mg/dL (0.2-1.3); BLOOD UREA NITROGEN 17 mg/dL (7-17); CARBON DIOXIDE 25 mmol/L (22-30); GLUCOSE,RANDOM 98 mg/dL (65-105); TOTAL PROTEIN 6.5 g/dL (6.3-8.3)
[2017-05-21 07:44] LABS: CALCIUM 8.9 mg/dl (8.6-10.4)
[2017-05-21] MEDS ORDERED: Aminophylline 25 mg/ml Inj ONE (09:00)
--- NOTE | 2017-05-21 18:13 | CARD ---
APPROVED REPORT Protocol: LEXISCAN Test Type: LEXISCAN STRESS Test Indications: CP Target HR: 154 bpm Resting ECG: normal Resting Heart Rate: 60 bpm Resting Blood Pressure: 140/80mmHg submaximum (85%): 131 bpm TEST SUMMARY PREINFSNHYPERV.20:[id number]/80.0. INFUSIONDOSE 100:300.00.01.058/.0. [id number]/80.0. PROCEDURE Pharmacologic stress testing was performed using 0.4mg per 5ml of regadenoson given intravenously over 7-10 seconds. Reversal agent aminophyline 100 mg, given intravenously for Headache. POST EXERCISE Reason for Termination: LEXISCAN ENDED Target HR: No Max HR: 58 bpm 59% of Maximum Predicted HR: 154 bpm Exercise duration: 00:30 min:sec, 0 Stage Exercise capacity: 1.0METs Max Blood Pressure: 140/80mmHg Chest Pain: Yes, Angina index: 0 Arrhythmia: Yes, ST Change: Yes, Deviation: 0 mm INTERPRETATION Stress EKG Conclusion: nL LEXISCAN STUDY NUCLEAR PENDING EXAM: Myocardial Perfusion STRESS/REST Imaging Protocol The imaging protocol used to acquire images was Stress Tc-99m/rest Tc-99m 1 day Stress Spect myocardial perfusion imaging was performed in supine position 40 minutes following the injection of 12.4 mCi of Tc-99 Myoview. Gated Rest Spect was performed 39 minutes after intravenous 32.1 mCi Tc-99 Myoview injection. The images were gated to evaluate regional wall motion and calculate ventricular ejection fraction.Images were reconstructed using backfilter projection method in short horizontal and verticle long axis. Spect slices were generated. RESTING DATA EDV65.27uxNJ3.30L/min1/3 Pk. Filling Rate1.44EDV/sec LV Time to Pk. Filling Qcfo959.64msec ESV9.00mlMyocardial Rkuc320.00gLV Time to Pk. Ejection Uaqv699.48msec Pk. Fill Rate2.99EDV/secAv. Heart Rate60.00bpm EF86.00%Pk. Emptying Rate4.29ESV/sec STRESS DATA EDV72.38cpOC1.10L/min ESV7.00mlMyocardial Wmif598.00g Pk. Fill Rate3.24EDV/sec EF90.00%Pk. Emptying Rate4.01ESV/sec 1/3 Pk. Filling Rate2.02EDV/secRegional WT score at stress:0.00 LV Time to Pk. Filling Rate:135.78msecRegional WM score at stress:0.00 LV Time to Pk. Ejection Rate:231.18msecSummed WT score at stress:1.00 Av. Heart Rate63.00bpmSummed WM score at stress:0.00 LV Perf. Quant 17 Seg. SSS5.00 17 Seg. SRS3.00 17 Seg. SDS2.00 Stress Defect Extent (% LAD)0.00Rest Defect Extent (% LAD)0.00Rev. Defect Extent (% LAD)0.00 Stress Defect Extent (% LCX)46.30Rest Defect Extent (% LCX)17.50Rev. Defect Extent (% LCX)7.50 Stress Defect Extent (% RCA)0.00Rest Defect Extent (% RCA)0.00Rev. Defect Extent (% RCA)0.00 Stress Defect Extent (% RICKY)8.30Rest Defect Extent (% RICKY)3.00Rev. Defect Extent (% RICKY)1.30 Other Information Quality:Good IMPRESSION Abnormal Myocardial Perfusion exercise stress study Left Ventricle LV Size/Shape: The left ventricle is normal size. LV Function:Left ventricle systolic function is normal. The Ejection Fraction is >55%. Conclusion 1. Small apical reversible ischemia suggestive of CAD. Normal EF. 2. Given her symptoms of Left sided chest pain, recommend cardiac cath.
--- NOTE | 2017-05-21 21:58 | CP.PCM.PN ---
Subjective - Date & Time of Evaluation Date of Evaluation: 05/21/17 Time of Evaluation: 14:30 - Subjective Subjective: Patient seen and evaluated S/P stress test which is abnormal Currently chest pain free Objective - Vital Signs/Intake and Output Vital Signs (last 24 hours): Temp Pulse Resp BP Pulse Ox 97.9 F 58 L 20 150/81 96 05/21/17 16:00 05/21/17 16:00 05/21/17 16:00 05/21/17 16:00 05/21/17 16:00 - Medications Medications: Current Medications Amlodipine Besylate (Norvasc) 5 mg PO DAILY [facility] Last Admin: 05/21/17 09:59 Dose: 5 mg Aspirin (Aspirin Chewable) 81 mg PO DAILY [facility] Last Admin: 05/21/17 09:59 Dose: 81 mg Carbamazepine (Tegretol-Xr) 300 mg PO Q48H [facility] Last Admin: 05/21/17 14:22 Dose: 300 mg Famotidine (Pepcid) 20 mg PO DAILY [facility] Last Admin: 05/21/17 09:59 Dose: 20 mg Heparin Sodium (Porcine) (Heparin) 5,000 units SC Q8 [facility] Last Admin: 05/21/17 21:33 Dose: 5,000 units Nebivolol (Bystolic) 10 mg PO DAILY [facility] Last Admin: 05/21/17 09:59 Dose: 10 mg Nitroglycerin (Nitrostat Sl Tab) 0.4 mg SL Q5M PRN PRN Reason: chest pain Rosuvastatin Calcium (Crestor) 10 mg PO HS [facility] Last Admin: 05/21/17 21:33 Dose: 10 mg - Labs Labs: 05/21/17 07:16 05/21/17 07:16 - Head Exam Head Exam: ATRAUMATIC, NORMAL INSPECTION - Eye Exam Eye Exam: EOMI, Normal appearance, PERRL - ENT Exam ENT Exam: Mucous Membranes Moist - Neck Exam Neck Exam: Full ROM - Respiratory Exam Respiratory Exam: Clear to Ausculation Bilateral, NORMAL BREATHING PATTERN - Cardiovascular Exam Cardiovascular Exam: REGULAR RHYTHM, +S1, +S2 - GI/Abdominal Exam GI & Abdominal Exam: Soft, Normal Bowel Sounds - Extremities Exam Extremities Exam: Full ROM - Neurological Exam Neurological Exam: Alert, Oriented x3 - Psychiatric Exam Psychiatric exam: Normal Mood Assessment and Plan - Assessment and Plan (Free Text) Assessment: 1. HTN 2. Exertional chest pain Abnormal stress test For cath in am
--- NOTE | 2017-05-21 22:22 | CP.PCM.PN ---
<James Barcenas - Last Filed: 05/21/17 22:20> Subjective - Date & Time of Evaluation Date of Evaluation: 05/21/17 Time of Evaluation: 09:00 - Subjective Subjective: PGY1 Medicine Note for Dr. Andersen Patient seen and examined this morning at bedside. Patient states that she is feeling well. She was able walk to walk around the floor with PT without getting lightheaded or dizzy. She states she is ready to go home as soon as possible, misses her . She is scheduled for a nuclear stress test with Dr. Stewart in the afternoon, pt is currently NPO. She has no other complaints at this time. Denies f/c, n/v/d, sob or cp. Objective - Vital Signs/Intake and Output Vital Signs (last 24 hours): Temp Pulse Resp BP Pulse Ox 97.9 F 58 L 20 150/81 96 05/21/17 16:00 05/21/17 16:00 05/21/17 16:00 05/21/17 16:00 05/21/17 16:00 - Medications Medications: Current Medications Amlodipine Besylate (Norvasc) 5 mg PO DAILY [facility] Last Admin: 05/21/17 09:59 Dose: 5 mg Aspirin (Aspirin Chewable) 81 mg PO DAILY [facility] Last Admin: 05/21/17 09:59 Dose: 81 mg Carbamazepine (Tegretol-Xr) 300 mg PO Q48H [facility] Last Admin: 05/21/17 14:22 Dose: 300 mg Famotidine (Pepcid) 20 mg PO DAILY [facility] Last Admin: 05/21/17 09:59 Dose: 20 mg Heparin Sodium (Porcine) (Heparin) 5,000 units SC Q8 [facility] Last Admin: 05/21/17 21:33 Dose: 5,000 units Nebivolol (Bystolic) 10 mg PO DAILY [facility] Last Admin: 05/21/17 09:59 Dose: 10 mg Nitroglycerin (Nitrostat Sl Tab) 0.4 mg SL Q5M PRN PRN Reason: chest pain Rosuvastatin Calcium (Crestor) 10 mg PO HS [facility] Last Admin: 05/21/17 21:33 Dose: 10 mg - Labs Labs: 05/21/17 07:16 05/21/17 07:16 - Constitutional Appears: Non-toxic, No Acute Distress - Head Exam Head Exam: ATRAUMATIC, NORMOCEPHALIC - Eye Exam Eye Exam: EOMI, Normal appearance - ENT Exam ENT Exam: Mucous Membranes Moist - Respiratory Exam Respiratory Exam: Clear to Ausculation Bilateral, NORMAL BREATHING PATTERN. absent: Accessory Muscle Use, Respiratory Distress - Cardiovascular Exam Cardiovascular Exam: REGULAR RHYTHM, +S1, +S2 - GI/Abdominal Exam GI & Abdominal Exam: Soft, Normal Bowel Sounds. absent: Distended, Firm, Guarding, Rigid, Tenderness - Extremities Exam Extremities Exam: Normal Capillary Refill, Normal Inspection. absent: Calf Tenderness, Pedal Edema - Back Exam Back Exam: absent: CVA tenderness (L), CVA tenderness (R) - Neurological Exam Neurological Exam: Alert, Awake, Oriented x3 - Psychiatric Exam Psychiatric exam: Normal Affect, Normal Mood - Skin Skin Exam: Dry, Normal Color, Warm Assessment and Plan - Assessment and Plan (Free Text) Plan: Chest Pain/Near Syncope Dr. Stewart Cardiology Consult - help appreciated. Discussed Stress Test - LEXASCAN with Dr. Stewart. As a result, he would like to do a Cardiac Cath in the morning. Official read is still pending. NPO after midnight except meds. EKG - NSR Troponins neg x 3 Crestor 10mg PO daily Aspirin 81mg PO daily Nitro 0.4mg SL Q5min PRN T4 1.03; TSH 2.26 Triglyceride 220; Chol. 226; LDL 157; HDL 32 HgbA1c 5.[address] Stewart to figure out Home Medications - Restarted patient's home medications, - Bystolic 10mg once daily - Amlodipine 5mg once daily - Carbamezipine 300mg once every other day - some inhaler but unknown dosage 05/19/17 - Attempted to call patient's pharmacy to verify medications but the pharmacy name given, [facility], does not have any record of patient. Patient gave a phone number , but the number is not currently in service. ECHO(05/18/17): EF 60-65%, Diastolic dysfunction, No aortic regurg., mild mitral valve prolapse, mild mitral regurg., no tricuspid or pulmonic valvular regurg. Prophylactic Care Heparin 5000 SC Q8H Pepcid 20mg PO daily Case discussed with Dr. Nathaly Barcenas PGY1 <Tam Andersen - Last Filed: 05/22/17 18:06> Objective - Vital Signs/Intake and Output Vital Signs (last 24 hours): Temp Pulse Resp BP Pulse Ox 98.3 F 69 20 146/79 96 05/22/17 15:25 05/22/17 15:25 05/22/17 15:25 05/22/17 15:25 05/22/17 15:25 - Labs Labs: 05/22/17 06:14 05/22/17 06:14 PT 11.6 SECONDS (9.7-12.2) 05/22/17 06:14 INR 1.0 05/22/17 06:14 APTT 31 SECONDS (21-34) 05/22/17 06:14 Attending/Attestation - Attestation I have personally seen and examined this patient.: Yes I have fully participated in the care of the patient.: Yes I have reviewed all pertinent clinical information, including history, physical exam and plan: Yes Notes (Text): 05/22/17 18:05 Patient was seen and examined at bedside with the resident Status post Cardec stress test. Awaiting results Follow-up recommendations of cardiology Continue current medical management and discussed the plan of care with the resident I agree with the above history and physical and assessment/plan documented by the resident.
[2017-05-22 06:19] LABS: BASO % 0.5 % (0.0-2.0); EOS # 0.4 K/uL (0.0-0.7); EOS % 5.4 % (0.0-4.0); HEMATOCRIT 42.9 % (34.0-47.0); LYMPH # 2.1 K/uL (1.0-4.3); LYMPH % 31.4 % (20.0-40.0); MEAN CELL VOLUME 83.8 fL (81.0-99.0); MEAN CORPUSCULAR HEMOGLOBIN 28.4 pg (27.0-31.0); MEAN CORPUSCULAR HGB CONC 33.9 g/dL (33.0-37.0); MEAN PLATELET VOLUME 8.9 fL (7.2-11.7); MONO # 0.6 K/uL (0.0-0.8); MONO % 8.4 % (0.0-10.0); RED CELL DISTRIBUTION WIDTH 13.2 % (11.5-14.5); WHITE BLOOD COUNT 6.8 K/uL (4.8-10.8)
[2017-05-22 06:34] LABS: ALB/GLOB RATIO 1.1 (1.0-2.1); ALKALINE PHOSPHATASE 67 U/L (38-126); ALT/SGPT 37 U/L (9-52); AST/SGOT 29 U/L (14-36); BILIRUBIN,TOTAL 0.4 mg/dL (0.2-1.3); BLOOD UREA NITROGEN 13 mg/dL (7-17); CALCIUM 9.1 mg/dl (8.6-10.4); CARBON DIOXIDE 26 mmol/L (22-30); CHLORIDE 104 mmol/L (98-107); GFR AFRICAN-AMERICAN > 60; GLUCOSE,RANDOM 98 mg/dL (65-105); POTASSIUM 3.9 mmol/L (3.6-5.2); SODIUM 138 mmol/L (132-148); TOTAL PROTEIN 6.2 g/dL (6.3-8.3)
[2017-05-22] MEDS ORDERED: Iohexol 350mg/ml 100 ML ONE ×3 (08:02→09:04)
[2017-05-22] MEDS ORDERED: Midazolam 2 MG/2 ML VIAL ONE (08:02)
[2017-05-22] MEDS ORDERED: Nitroglycerin 50mg in D5W 50 MG/250 ML BOTTLE IV ONE (08:15)
--- NOTE | 2017-05-22 16:07 | CARD ---
APPROVED REPORT EKG Measurement Heart [id number] <Conclusion> Normal sinus rhythm Normal ECG
--- NOTE | 2017-05-22 16:13 | CARD ---
APPROVED REPORT EKG Measurement Heart [id number] <Conclusion> Normal sinus rhythm Cannot rule out Inferior infarct, age undetermined Abnormal ECG
[2017-05-22 17:03] VITALS: BP 146/79; PULSE 69; RESP 20; TEMP 98.3; O2SAT 96
--- NOTE | 2017-05-22 21:28 | CP.PCM.DIS ---
<James Barcenas - Last Filed: 05/25/17 19:08> Provider - Provider Date of Admission: 05/20/17 15:06 Attending physician: Tam Andersen MD Time Spent in preparation of Discharge (in minutes): 45 Hospital Course - Lab Results Lab Results: Most Recent Lab Values WBC 6.8 K/uL (4.8-10.8) 05/22/17 06:14 RBC 5.12 Mil/uL (3.80-5.20) 05/22/17 06:14 Hgb 14.5 g/dL (11.0-16.0) 05/22/17 06:14 Hct 42.9 % (34.0-47.0) 05/22/17 06:14 MCV 83.8 fL (81.0-99.0) 05/22/17 06:14 MCH 28.4 pg (27.0-31.0) 05/22/17 06:14 MCHC 33.9 g/dL (33.0-37.0) 05/22/17 06:14 RDW 13.2 % (11.5-14.5) 05/22/17 06:14 Plt Count 167 K/uL (130-400) 05/22/17 06:14 MPV 8.9 fL (7.2-11.7) 05/22/17 06:14 Neut % (Auto) 54.3 % (50.0-75.0) 05/22/17 06:14 Lymph % (Auto) 31.4 % (20.0-40.0) 05/22/17 06:14 [place] % (Auto) 8.4 % (0.0-10.0) 05/22/17 06:14 Eos % (Auto) 5.4 % (0.0-4.0) H 05/22/17 06:14 Baso % (Auto) 0.5 % (0.0-2.0) 05/22/17 06:14 Neut # 3.7 K/uL (1.8-7.0) 05/22/17 06:14 Lymph # 2.1 K/uL (1.0-4.3) 05/22/17 06:14 [place] # 0.6 K/uL (0.0-0.8) 05/22/17 06:14 Eos # 0.4 K/uL (0.0-0.7) 05/22/17 06:14 Baso # 0.0 K/uL (0.0-0.2) 05/22/17 06:14 PT 11.6 SECONDS (9.7-12.2) 05/22/17 06:14 INR 1.0 05/22/17 06:14 APTT 31 SECONDS (21-34) 05/22/17 06:14 Sodium 138 mmol/L (132-148) 05/22/17 06:14 Potassium 3.9 mmol/L (3.6-5.2) 05/22/17 06:14 Chloride 104 mmol/L (98-107) 05/22/17 06:14 Carbon Dioxide 26 mmol/L (22-30) 05/22/17 06:14 Anion Gap 12 (10-20) 05/22/17 06:14 BUN 13 mg/dL (7-17) 05/22/17 06:14 Creatinine 0.8 MG/DL (0.7-1.2) 05/22/17 06:14 Est GFR ( Amer) > 60 05/22/17 06:14 Est GFR (Non-Af Amer) > 60 05/22/17 06:14 Random Glucose 98 mg/dL (65-105) 05/22/17 06:14 Hemoglobin A1c 5.8 % (4.2-6.5) 05/19/17 06:07 Calcium 9.1 mg/dl (8.6-10.4) 05/22/17 06:14 Total Bilirubin 0.4 mg/dL (0.2-1.3) 05/22/17 06:14 AST 29 U/L (14-36) 05/22/17 06:14 ALT 37 U/L (9-52) 05/22/17 06:14 Alkaline Phosphatase 67 U/L (38-126) 05/22/17 06:14 Total Creatine Kinase 69 U/L (30-135) 05/19/17 01:53 CK-MB (Mass) 0.67 ng/mL (0.0-3.38) 05/19/17 01:53 Troponin I < 0.0120 ng/mL (0.00-0.120) 05/18/17 11:30 Troponin I, Quant < 0.0120 ng/mL (0.00-0.120) 05/19/17 01:53 Total Protein 6.2 g/dL (6.3-8.3) L 05/22/17 06:14 Albumin 3.3 g/dL (3.5-5.0) L 05/22/17 06:14 Globulin 2.9 gm/dL (2.2-3.9) 05/22/17 06:14 Albumin/Globulin Ratio 1.1 (1.0-2.1) 05/22/17 06:14 Triglycerides 220 mg/dL (0-149) H 05/19/17 06:07 Cholesterol 226 mg/dL (0-199) H 05/19/17 06:07 LDL Cholesterol Direct 157 mg/dL (0-129) H 05/19/17 06:07 HDL Cholesterol 32 mg/dL (30-70) 05/19/17 06:07 Free T4 1.03 ng/dL (0.78-2.19) 05/19/17 06:07 TSH 3rd Generation 2.26 mIU/L (0.46-4.68) 05/19/17 06:07 - Hospital Course Hospital Course: As per admission documentation: 67 year old female with a PMH of HTN, HLD and unspecified neurological and lung disorders. Patient comes to the hospital today with 3 day history of chest pain and near syncope. The patient is works as an OR nurse and states during a case on thursday05/15/17, she was working and needed to call for someone else to take her place. She got extremely lightheaded and felt like she was about to pass out , although she denies ever losing consciousness. The patient states that she has had chest pain intermittently over the last 2 to 3 weeks and at least once every day over the past 3 days. The pain is burning in nature and located on the left side of her chest. It does not radiate anywhere. The pain can happen any time, including rest, but seems to happen more often when she is doing anything physical, like while she was working on thursday05/15/17. The pain lasts approximately 10 seconds at a time. She states that she has become diaphoretic multiple times but it does not happen every time she has the chest pain. The patient states that the pain resolves completely when she lays down. Patient recently finished a prescription for Cipro for treatment of an UTI. Patient was in ER approximately one month ago for dizziness, but patient states that the symptoms this time are completely different. Patient denies f/c, n/v, d/c, sob, vision changes, weakness, dizziness, cough, [place]ARRO, rash, urinary symptoms. EKG on 05/18/17 showed NSR. Troponins negative x3. Dr. Stewart consulted. Head CT showed no acute intracranial hemorrhage. Persistent localized encephalomalacia changes right lateral cerebellar hemisphere subjacent to a right occipital/suboccipital craniectomy defect unchanged. Moderate significant chronic white matter ischemic changes. Moderate volume loss. Carotid Doppler on 05/18/17 showed no hemodynamically significant stenosis on left or right. Patient went for LEXASCAN stress test with Dr. Stewart on 05/21/17, which resulted in an abnormal stress test. The EF was >55%. Small apical reversible ischemia suggestive of CAD. Patient went for cardiac cath on 05/22/17, which showed no significant disease. Patient was cleared for discharge and instructed to follow up with Dr. Stewart as outpatient. Discharge instructions Please discharge patient home, as per Dr. Andersen. Patient is to continue home medications as instructed by her Primary Care Physician. Patient is to follow up with Dr. Stewart within 3 weeks. If symptoms worsen, patient is to return to the hospital for further evaluation and treatment. Patient is not being given any prescriptions upon discharge. Instructions were explained to the patient. Patient understands and agrees. Start taking Aspirin 81mg PO daily. Continue Home Medications as directed by Dr. Stewart Bystolic 10mg PO daily Amlodipine 5mg PO daily Crestor 5mg PO HS Carbamezipine 300mg every other day - Date & Time of H&P Date of H&P: 05/18/17 Time of H&P: 17:20 Discharge Exam - Head Exam Head Exam: ATRAUMATIC, NORMOCEPHALIC - Eye Exam Eye Exam: EOMI, Normal appearance - ENT Exam ENT Exam: Mucous Membranes Moist - Respiratory Exam Respiratory Exam: Clear to PA & Lateral, NORMAL BREATHING PATTERN. absent: Accessory Muscle Use, Wheezes, Respiratory Distress - Cardiovascular Exam Cardiovascular Exam: REGULAR RHYTHM, +S1, +S2. absent: Gallop, Rubs - GI/Abdominal Exam GI & Abdominal Exam: Normal Bowel Sounds, Soft. absent: Guarding, Rigid, Tenderness - Neurological Exam Neurological exam: Alert, Normal Gait, Oriented x3 - Psychiatric Exam Psychiatric exam: Normal Affect, Normal Mood - Skin Skin Exam: Dry, Normal Color, Warm Discharge Plan - Follow Up Plan Condition: STABLE Disposition: HOME/ ROUTINE Instructions: Cardiac Stress Test (DC), Chest Pain (DC), Heart Healthy Diet (DC ), Syncope (DC), Heart Catheterization (DC) Additional Instructions: Please discharge patient home, as per Dr. Andersen. Patient is to continue home medications as instructed by her Primary Care Physician. Patient is to follow up with Dr. Stewart within 3 weeks. If symptoms worsen, patient is to return to the hospital for further evaluation and treatment. Patient is not being given any prescriptions upon discharge. Instructions were explained to the patient. Patient understands and agrees. Start taking Aspirin 81mg PO daily. Continue Home Medications as directed by Dr. Stewart Bystolic 10mg PO daily Amlodipine 5mg PO daily Crestor 5mg PO HS Carbamezipine 300mg every other day Referrals: Rogelio Stewart MD [Staff Provider] - <Tam Andersen - Last Filed: 06/01/17 14:28> Provider - Provider Date of Admission: 05/20/17 15:06 Attending physician: Tam Andersen MD Hospital Course - Lab Results Lab Results: Most Recent Lab Values WBC 6.8 K/uL (4.8-10.8) 05/22/17 06:14 RBC 5.12 Mil/uL (3.80-5.20) 05/22/17 06:14 Hgb 14.5 g/dL (11.0-16.0) 05/22/17 06:14 Hct 42.9 % (34.0-47.0) 05/22/17 06:14 MCV 83.8 fL (81.0-99.0) 05/22/17 06:14 MCH 28.4 pg (27.0-31.0) 05/22/17 06:14 MCHC 33.9 g/dL (33.0-37.0) 05/22/17 06:14 RDW 13.2 % (11.5-14.5) 05/22/17 06:14 Plt Count 167 K/uL (130-400) 05/22/17 06:14 MPV 8.9 fL (7.2-11.7) 05/22/17 06:14 Neut % (Auto) 54.3 % (50.0-75.0) 05/22/17 06:14 Lymph % (Auto) 31.4 % (20.0-40.0) 05/22/17 06:14 [place] % (Auto) 8.4 % (0.0-10.0) 05/22/17 06:14 Eos % (Auto) 5.4 % (0.0-4.0) H 05/22/17 06:14 Baso % (Auto) 0.5 % (0.0-2.0) 05/22/17 06:14 Neut # 3.7 K/uL (1.8-7.0) 05/22/17 06:14 Lymph # 2.1 K/uL (1.0-4.3) 05/22/17 06:14 [place] # 0.6 K/uL (0.0-0.8) 05/22/17 06:14 Eos # 0.4 K/uL (0.0-0.7) 05/22/17 06:14 Baso # 0.0 K/uL (0.0-0.2) 05/22/17 06:14 PT 11.6 SECONDS (9.7-12.2) 05/22/17 06:14 INR 1.0 05/22/17 06:14 APTT 31 SECONDS (21-34) 05/22/17 06:14 Sodium 138 mmol/L (132-148) 05/22/17 06:14 Potassium 3.9 mmol/L (3.6-5.2) 05/22/17 06:14 Chloride 104 mmol/L (98-107) 05/22/17 06:14 Carbon Dioxide 26 mmol/L (22-30) 05/22/17 06:14 Anion Gap 12 (10-20) 05/22/17 06:14 BUN 13 mg/dL (7-17) 05/22/17 06:14 Creatinine 0.8 MG/DL (0.7-1.2) 05/22/17 06:14 Est GFR ( Amer) > 60 05/22/17 06:14 Est GFR (Non-Af Amer) > 60 05/22/17 06:14 Random Glucose 98 mg/dL (65-105) 05/22/17 06:14 Hemoglobin A1c 5.8 % (4.2-6.5) 05/19/17 06:07 Calcium 9.1 mg/dl (8.6-10.4) 05/22/17 06:14 Total Bilirubin 0.4 mg/dL (0.2-1.3) 05/22/17 06:14 AST 29 U/L (14-36) 05/22/17 06:14 ALT 37 U/L (9-52) 05/22/17 06:14 Alkaline Phosphatase 67 U/L (38-126) 05/22/17 06:14 Total Creatine Kinase 69 U/L (30-135) 05/19/17 01:53 CK-MB (Mass) 0.67 ng/mL (0.0-3.38) 05/19/17 01:53 Troponin I < 0.0120 ng/mL (0.00-0.120) 05/18/17 11:30 Troponin I, Quant < 0.0120 ng/mL (0.00-0.120) 05/19/17 01:53 Total Protein 6.2 g/dL (6.3-8.3) L 05/22/17 06:14 Albumin 3.3 g/dL (3.5-5.0) L 05/22/17 06:14 Globulin 2.9 gm/dL (2.2-3.9) 05/22/17 06:14 Albumin/Globulin Ratio 1.1 (1.0-2.1) 05/22/17 06:14 Triglycerides 220 mg/dL (0-149) H 05/19/17 06:07 Cholesterol 226 mg/dL (0-199) H 05/19/17 06:07 LDL Cholesterol Direct 157 mg/dL (0-129) H 05/19/17 06:07 HDL Cholesterol 32 mg/dL (30-70) 05/19/17 06:07 Free T4 1.03 ng/dL (0.78-2.19) 05/19/17 06:07 TSH 3rd Generation 2.26 mIU/L (0.46-4.68) 05/19/17 06:07 Attending/Attestation - Attestation I have personally seen and examined this patient.: Yes I have fully participated in the care of the patient.: Yes I have reviewed all pertinent clinical information, including history, physical exam and plan: Yes Notes (Text): 06/01/17 14:28 Patient was seen and examined at bedside with the resident on the day of discharge Patient appears comfortable without any distress Patient is cleared by cardiology for discharge to home I agree with the discharge note by the resident.
--- NOTE | 2017-05-31 14:39 | CARDCATH ---
PROCEDURE DATE: 05/22/2017 PROCEDURES: 1. Left heart catheterization. 2. Coronary angiogram. 3. Aortic root angiogram. CLINICAL INDICATIONS: 1. Chest pain. 2. Hypertension. 3. Abnormal stress test. 4. Hyperlipidemia. PERFORMING PHYSICIAN: Dr. Rogelio Stewart. PROCEDURE: After informed consent, the patient was prepped and draped in the usual sterile fashion. A 2% lidocaine was given in the right wrist for local anesthesia. Using micropuncture technique, a 6-Greek sheath was introduced into the right radial artery. Using the usual diagnostic catheter, left heart catheterization, coronary angiogram, aortic root angiogram was performed. The patient tolerated the procedure well. FINDINGS: 1. Left main is short and patent. 2. Proximal, distal LAD and diagonal branches are patent. Mid LAD has a concentric 50% nonobstructive stenosis. 3. Left circumflex is codominant artery and patent. Right coronary artery has a proximal, mid 2 discrete 30% nonobstructive lesions. PDA has a 60% nonobstructive stenosis. 4. LV ejection fraction is approximately 70%. No wall motion abnormalities. EDP is 20. No gradient across the aortic valve. 5. Aortogram shows mildly dilated aortic root. IMPRESSION: 1. Nonobstructive coronaries. 2. Normal left ventricular systolic function. 3. Mildly dilated aortic root. RECOMMENDATIONS: Continue aggressive medical therapy. Recommend CT angiography of the thoracic aorta to rule out aortic aneurysm as outpatient. Rogelio Stewart MD
== END 2017-05-22 17:59 | disposition home or self-care (01) | DRG 287 ==
LOC: C.ER 10:24 → C.9E 12:08 → C.6T 13:53 → OBSVTOIN 05-20 15:06
PROVIDERS: ADMIT Internal Medicine; ATTEND Internal Medicine
PROC: 4A023N7 Measurement of Cardiac Sampling and Pressure, Left Heart, Percutaneous Approach (ICD-10-PCS; principal; 2017-05-22)
PROC: B201YZZ Plain Radiography of Multiple Coronary Arteries using Other Contrast (ICD-10-PCS; 2017-05-22)
PROC: B205YZZ Plain Radiography of Left Heart using Other Contrast (ICD-10-PCS; 2017-05-22)
DX: R07.89 Other chest pain (principal); I10 Essential (primary) hypertension; R55 Syncope and collapse; M79.2 Neuralgia and neuritis, unspecified; J45.909 Unspecified asthma, uncomplicated; E78.00 Pure hypercholesterolemia, unspecified; E04.1 Nontoxic single thyroid nodule; K21.9 Gastro-esophageal reflux disease without esophagitis; R94.39 Abnormal result of other cardiovascular function study

== ENCOUNTER 2017-10-12 22:40 | Emergency (ER) | payer OTHER ==
[2017-10-12 22:41] VITALS: BMI 34.5
[2017-10-12 22:49] VITALS: BP 162/76; PULSE 73; RESP 20; TEMP 97.6; O2SAT 100
[2017-10-12] MEDS ORDERED: Naproxen 550 mg Tab PO STA (23:30)
[2017-10-12] MEDS ORDERED: Naproxen 550 mg Tab PO ONE (23:31)
--- NOTE | 2017-10-13 00:03 | C.PDOC ---
History Of Present Illness Patient is a 67 y/o female who presents to the ED with a complaint of left- sided rib pain since today. Patient reports falll this morning on sidewalk, sustaining injury (unsure if she hit her ribs on floor). Notes pain worsens with movement; denies head injury, LOC, SOB, no pain medication taken RN CARDIAC. No other physical complaints at this time. Time Seen by Provider: 10/12/17 23:18 Chief Complaint (Nursing): Chest Pain History Per: Patient History/Exam Limitations: no limitations Onset/Duration Of Symptoms: Hrs Current Symptoms Are (Timing): Still Present Context: Recent Trauma (fell this morning) Recent travel outside of the [place]: No Past Medical History Reviewed: Historical Data, Nursing Documentation, Vital Signs Vital Signs: Last Vital Signs Temp 97.6 F 10/12/17 22:46 Pulse 73 10/12/17 22:46 Resp 20 10/12/17 22:46 BP 162/76 H 10/12/17 22:46 Pulse Ox 100 10/13/17 01:30 - Medical History PMH: Asthma, CVA, HTN, Hypercholesterolemia Denies: Chronic Kidney Disease Surgical History: Endoscopy - [facility] Procedures APPLICATION OF SPLINT (12/13/05) DX ULTRASOUND-HEAD/NECK (12/11/14) ENDOSCOPIC CONTROL OF GASTRIC OR DUODENAL BLEEDING (09/30/13) ESOPHAGOGASTRODUODENOSCOPY [EGD] W/CLOSED BIOPSY (09/30/13) MEASURE OF CARDIAC SAMPL & PRESSURE, L HEART, PERC APPROACH (05/20/17) PERCUTAN NEEDLE BX OF THYROID GLAND (12/11/14) PLAIN RADIOGRAPHY OF LEFT HEART USING OTHER CONTRAST (05/20/17) PLAIN RADIOGRAPHY OF MULT COR ART USING OTH CONTRAST (05/20/17) TETANUS TOXOID ADMINIST (12/12/05) Family History: States: Unknown Family Hx - Social History Hx Tobacco Use: No Hx Alcohol Use: No Hx Substance Use: No - Immunization History Hx Tetanus Toxoid Vaccination: No Hx Influenza Vaccination: No Hx Pneumococcal Vaccination: No Review Of Systems Cardiovascular: Negative for: Chest Pain, Palpitations Respiratory: Negative for: Cough, Shortness of Breath Musculoskeletal: Positive for: Other (left rib pain) Neurological: Negative for: Other (head injury) Physical Exam - Physical Exam Appears: Well, Non-toxic, No Acute Distress Head: Atraumatic Eye(s): bilateral: Normal Inspection Chest: No Deformity, No Ecchymosis, Other (pain to T4/T5 left intercostal area; no crepitus, minimal erythema) Cardiovascular: Rhythm Regular Respiratory: Normal Breath Sounds, No Rales, No Rhonchi, No Wheezing Back: Normal Inspection Neurological/Psych: Oriented x3 ED Course And Treatment O2 Sat by Pulse Oximetry: 100 - Other Rad Left ribs/chest X-Ray: Interpreted by Me, Viewed By Me Interpretation: No rib fx, no pneumothorax Progress Note: Left ribs and chest xr ordered. Naproxen administered. On re- eval, patient feels better and is okay with going home. Patient to be discharged with pain meds, follow up instructions and return precautions were discussed Reassessment Condition: Improved Disposition - Disposition Referrals: Ashley Major MD [Staff Provider] - Disposition: HOME/ ROUTINE Disposition Time: 00:01 Condition: STABLE Additional Instructions: Take motrin for pain Follow up with pMD Return to ER if worse Prescriptions: Cyclobenzaprine [Cyclobenzaprine HCl] 10 mg PO HS #7 tab Naproxen [Naprosyn] 1 tab PO BID PRN #20 tab PRN Reason: Pain Instructions: Rib Contusion (ED) Forms: [facility] (Korean), Work Excuse - Clinical Impression Clinical Impression: Contusion of rib on left side, Muscle strain - Scribe Statement The provider has reviewed the documentation as recorded by the Scribe Inna Keane All medical record entries made by the Scribe were at my direction and personally dictated by me. I have reviewed the chart and agree that the record accurately reflects my personal performance of the history, physical exam, medical decision making, and the department course for this patient. I have also personally directed, reviewed, and agree with the discharge instructions and disposition.
--- NOTE | 2017-10-13 08:33 | RAD ---
PROCEDURE: Radiographs of the Chest and Left Ribs. HISTORY: fall, left rib pain COMPARISON: 05/18/2017. TECHNIQUE: Frontal radiograph of the chest and multiple oblique radiographs of the left ribs were obtained. FINDINGS: LEFT RIBS: No fracture or focal lesion visualized. LUNGS: Clear. PLEURA: No pneumothorax or pleural fluid. CARDIOVASCULAR: Normal sized heart. No pulmonary vascular congestion. OTHER FINDINGS: Left shoulder arthrosis. Thoracic spondylosis -similar IMPRESSION: No fracture.Left shoulder arthrosis. Thoracic spondylosis -similar
== END 2017-10-13 00:08 | disposition home or self-care (01) ==
LOC: C.ER 22:40
DX: S20.212A Contusion of left front wall of thorax, initial encounter (principal); S29.011A Strain of muscle and tendon of front wall of thorax, initial encounter; W01.0XXA Fall on same level from slipping, tripping and stumbling without subsequent striking against object, initial encounter; Y92.480 Sidewalk as the place of occurrence of the external cause

== ENCOUNTER 2018-05-12 09:32 | Day surgery (SDC) | payer OTHER ==
--- NOTE | 2018-05-12 10:54 | CP.SDSHP ---
Same Day Surgery H & P - History Proposed Procedure: US guided FNA of right thyroid nodule Pre-Op Diagnosis: Thyroid nodule - Allergies Allergies: Allergies Penicillins Allergy (Verified 10/12/17 22:50) RASH - Physical Exam Mental Status: Alert & Oriented x3 - Impression Impression: Pt with a complex 2.5 cm right thyroid nodule. Plan US guided FNA. Pt. Evaluated Today:Candidate for Anesthesia & Procedure: No Short Stay Discharge - Short Stay Discharge Admitting Diagnosis/Reason for Visit: dx: e04.1-thyroid nodules Disposition: HOME/ ROUTINE
--- NOTE | 2018-05-12 10:56 | PCM.SURG1 ---
Surgeon's Initial Post Op Note - Surgeon's Notes Surgeon: Jack Juárez MD [employer]: NONE Type of Anesthesia: Local Pre-Operative Diagnosis: Thyroid nodule Operative Findings: US showed a complex 2.5 cm right thyroid nodule Post-Operative Diagnosis: Thyroid nodule Operation Performed: US guided FNA Specimen/Specimens Removed: 25 g FNA x 5 passes Estimated Blood Loss: EBL {In ML}: 1 Blood Products Given: N/A Drains Used: No Drains Post-Op Condition: Good Date of Surgery/Procedure: 05/12/18 Time of Surgery/Procedure: 10:50
--- NOTE | 2018-05-12 14:38 | US ---
PROCEDURE: Date of Procedure: 05/12/2018 PROCEDURE: 1. Ultrasound guided FNA of right thyroid nodule, CPT 87183 2. Ultrasound guidance for FNA, 56220 Medications: 3cc 1% Lidocaine HISTORY: Enlarged right thyroid nodule. TECHNIQUE: Following informed consent and procedure time-out, a limited ultrasound patient's neck confirmed the presence of a 2.5 cm complex right thyroid nodule which is predominantly solid. After the patient's neck was prepped and draped in the usual sterile fashion, the skin was anesthetized with 1% lidocaine. Ultrasound-guided fine needle aspiration was then performed of the dominant right thyroid nodule. A total of 5 passes were made into the nodule with 25 gauge needle under ultrasound guidance. The FNA specimen was sent for routine pathology and genetics . Post biopsy ultrasound showed no hematoma. IMPRESSION: Ultrasound-guided FNA of the dominant right thyroid nodule.
== END 2018-05-12 11:45 | disposition home or self-care (01) ==
LOC: C.SPRAD 09:32
PROVIDERS: ATTEND Radiology Vascular & Interventional Radiology
DX: E04.2 Nontoxic multinodular goiter (principal)

== ENCOUNTER 2018-08-17 09:41 | Emergency (ER) | payer OTHER ==
[2018-08-17 09:41] VITALS: BMI 34.5
--- NOTE | 2018-08-17 10:37 | C.PDOC ---
History Of Present Illness 68 y/o female presents to the ED for evaluation of dizziness and feeling near- syncopal onset while at work this morning. She describes dizziness and room- spinning, and reports having similar episode on Thursday which resolved after rest. She denies any syncope/LOC. Currently she reports feeling better though slightly nauseous. Patient denies vomiting, chest pain, SOB, visual changes, focal weakness, or changes in speech. Reports cough, congestion, cold since last week, for which she is taking Tylenol cold and flu. Time Seen by Provider: 08/17/18 10:25 Chief Complaint (Nursing): Dizziness/Lightheaded History Per: Patient History/Exam Limitations: no limitations Onset/Duration Of Symptoms: Hrs Current Symptoms Are (Timing): Better Activity At Onset Of Symptoms: Walking Past Medical History Reviewed: Historical Data, Nursing Documentation, Vital Signs - Medical History PMH: Asthma (NEVER HOSPITALIZED- "VERY RARE-NO MEDS."), CVA, HTN, Hypercholesterolemia (controlled with diet) Denies: Chronic Kidney Disease Surgical History: Endoscopy - [facility] Procedures APPLICATION OF SPLINT (12/13/05) DX ULTRASOUND-HEAD/NECK (12/11/14) ENDOSCOPIC CONTROL OF GASTRIC OR DUODENAL BLEEDING (09/30/13) ESOPHAGOGASTRODUODENOSCOPY [EGD] W/CLOSED BIOPSY (09/30/13) MEASURE OF CARDIAC SAMPL & PRESSURE, L HEART, PERC APPROACH (05/20/17) PERCUTAN NEEDLE BX OF THYROID GLAND (12/11/14) PLAIN RADIOGRAPHY OF LEFT HEART USING OTHER CONTRAST (05/20/17) PLAIN RADIOGRAPHY OF MULT COR ART USING OTH CONTRAST (05/20/17) TETANUS TOXOID ADMINIST (12/12/05) Family History: States: Unknown Family Hx - Social History Hx Tobacco Use: No Hx Alcohol Use: No Hx Substance Use: No - Immunization History Hx Tetanus Toxoid Vaccination: No Hx Influenza Vaccination: No Hx Pneumococcal Vaccination: No Review Of Systems Constitutional: Negative for: Fever, Chills Eyes: Negative for: Vision Change, Other (photophobia) ENT: Positive for: Nose Congestion Cardiovascular: Negative for: Chest Pain, Palpitations Respiratory: Positive for: Cough. Negative for: Shortness of Breath Gastrointestinal: Positive for: Nausea. Negative for: Vomiting Neurological: Positive for: Headache, Dizziness (room spinning). Negative for: Weakness, Numbness Physical Exam - Physical Exam Appears: Non-toxic, No Acute Distress Skin: Warm, Dry Head: Atraumatic, Normacephalic Eye(s): bilateral: PERRL, EOMI, left: Other (+ fast horizontal nystagmus on the left, with inducible vertigo) Nose: Normal Oral Mucosa: Moist Neck: Normal ROM, No Midline Cervical Tenderness, Supple Chest: Symmetrical Cardiovascular: Rhythm Regular, No Murmur Respiratory: Normal Breath Sounds, No Rales, No Rhonchi, No Wheezing Gastrointestinal/Abdominal: Soft, No Tenderness, No Distention Extremity: Bilateral: Atraumatic, Normal Color And Temperature, Normal ROM Neurological/Psych: Oriented x3, Normal Speech, Normal Cranial Nerves, Normal Motor, Normal Sensation, Other (No focal deficits) Gait: Steady ED Course And Treatment ECG: Interpreted By Me ECG Rhythm: Sinus Rhythm ECG Interpretation: Normal Rate From EC Reevaluation Time: 12:17 Reassessment Condition: Improved Medical Decision Making Medical Decision Making: Impression: Vertigo Plan: --EKG --CT Head --BMP --CBC --IV fluids --Meclizine 50 mg PO --Reassess Disposition Counseled Patient/Family Regarding: Studies Performed, Diagnosis, Need For Followup, Rx Given - Disposition Referrals: YOUR,PMD [Other] Disposition: HOME/ ROUTINE Disposition Time: 12:18 Condition: IMPROVED Prescriptions: Benzonatate [Tessalon Perles] 200 mg PO TID PRN #15 sgl PRN Reason: Cough Meclizine [Antivert] 50 mg PO TID PRN #15 tab PRN Reason: Dizziness Instructions: Vertigo (a Type of Dizziness) (DC) Forms: [employer] (Portuguese) - Clinical Impression Clinical Impression: Vertigo - Scribe Statement The provider has reviewed the documentation as recorded by the Waleska Reddy Provider Attestation: All medical record entries made by the Waleska were at my direction and personally dictated by me. I have reviewed the chart and agree that the record accurately reflects my personal performance of the history, physical exam, medical decision making, and the department course for this patient. I have also personally directed, reviewed, and agree with the discharge instructions and disposition.
[2018-08-17] MEDS ORDERED: Sodium Chloride 0.9% 500 ML IV ONE (10:38)
--- NOTE | 2018-08-17 11:28 | CT ---
Date of service: 08/17/2018 PROCEDURE: CT HEAD WITHOUT CONTRAST. HISTORY: VERTIGO COMPARISON: Comparison made with prior CT scan brain 814 2017. TECHNIQUE: Axial computed tomography images were obtained through the head/brain without intravenous contrast. Radiation dose: Total exam DLP = 1110.0 mGy-cm. This CT exam was performed using one or more of the following dose reduction techniques: Automated exposure control, adjustment of the mA and/or kV according to patient size, and/or use of iterative reconstruction technique. FINDINGS: HEMORRHAGE: No intracranial hemorrhage. BRAIN: Moderate diffuse/confluent chronic periventricular white matter ischemic changes seen extending peripherally into the deep and subcortical white matter both cerebral hemispheres. There is also extension of these changes into the white matter tracts of both basal nuclei. Multiple more discrete chronic appearing bilateral basal nuclei lacunar type infarcts also present. Note that the possibility of a small hyperacute infarct cannot be excluded on this exam. Clinical correlation recommended.. Moderate generalized volume loss. There is mild prominence of the subarachnoid space overlying the right inferior lateral cerebellar hemisphere subjacent to a craniectomy defect. Clinical correlation with surgical history recommended. Mild vascular calcifications both carotid siphons. VENTRICLES: Unremarkable. No hydrocephalus. CALVARIUM: Re demonstrated are craniectomy and cranioplasty changes right lateral inferior occipital calvarium. Small the rounded density sclerotic focus left aspect of the clivus probably represents bone island or osteoma. PARANASAL SINUSES: Unremarkable as visualized. No significant inflammatory changes. MASTOID AIR CELLS: Unremarkable as visualized. No inflammatory changes. OTHER FINDINGS: Changes of bilateral cataract surgery again noted IMPRESSION: No acute intracranial hemorrhage. Moderate chronic white matter ischemic changes. Chronic appearing bilateral basal nuclei ischemic changes. Note that the possibility of a small hyperacute infarct not excluded. Moderate generalized volume loss. Re demonstrated are craniectomy and cranioplasty changes right inferolateral occipital calvarium with slight prominence of the subjacent subarachnoid space.
[2018-08-17] MEDS ORDERED: Sodium Chloride 0.9% 1,000 ML ONE (12:08)
[2018-08-17 12:27] VITALS: BP 136/84; PULSE 66; RESP 18; TEMP 98.1; O2SAT 97
--- NOTE | 2018-08-18 12:24 | CARD ---
APPROVED REPORT Date of service: 08/17/2018 EKG Measurement Heart [id number] <Conclusion> Normal sinus rhythm Normal ECG
== END 2018-08-17 12:40 | disposition home or self-care (01) ==
LOC: C.ER 09:41
DX: R42 Dizziness and giddiness (principal); E78.00 Pure hypercholesterolemia, unspecified; I10 Essential (primary) hypertension; Z86.73 Personal history of transient ischemic attack (TIA), and cerebral infarction without residual deficits

== ENCOUNTER 2018-12-27 15:24 | Outpatient (CLI) | payer OTHER | END 2018-12-27 15:25 | disposition home or self-care (01) | LOC: C.RADIC 15:24 | DX: M54.5 Low back pain (principal) ==

== ENCOUNTER 2019-01-06 13:28 | Emergency (ER) | payer OTHER ==
[2019-01-06 13:29] VITALS: BMI 34.5
[2019-01-06 14:41] LABS: BASO # 0.1 K/uL (0.0-0.2); BASO % 0.6 % (0.0-2.0); EOS # 0.1 K/uL (0.0-0.7); EOS % 0.5 % (0.0-4.0); HEMOGLOBIN 14.9 g/dL (11.0-16.0); LYMPH # 1.4 K/uL (1.0-4.3); LYMPH % 11.2 % (20.0-40.0); MEAN CELL VOLUME 85.4 fL (81.0-99.0); MEAN CORPUSCULAR HEMOGLOBIN 28.5 pg (27.0-31.0); MEAN CORPUSCULAR HGB CONC 33.4 g/dL (33.0-37.0); MEAN PLATELET VOLUME 9.2 fL (7.2-11.7); MONO # 1.2 K/uL (0.0-0.8); MONO % 9.3 % (0.0-10.0); NEUT # 9.9 K/uL (1.8-7.0); NEUT % 78.4 % (50.0-75.0); RBC 5.22 Mil/uL (3.80-5.20); RED CELL DISTRIBUTION WIDTH 13.4 % (11.5-14.5)
[2019-01-06 14:42] LABS: WHITE BLOOD COUNT 12.7 K/uL (4.8-10.8)
[2019-01-06 14:51] LABS: PH,URINE 5.5 (5.0-8.0); URINE BILIRUBIN NEGATIVE (NEGATIVE); URINE BLOOD 2+ (NEGATIVE); URINE CLARITY Clear (Clear); URINE COLOR YELLOW (YELLOW); URINE GLUCOSE (UA) NEGATIVE (Normal)
[2019-01-06 14:52] LABS: URINE LEUKOCYTE ESTERASE NEGATIVE Leu/uL (Negative); URINE PROTEIN NEGATIVE (NEGATIVE); URINE UROBILINOGEN 0.2 mg/dL (0.2-1.0)
[2019-01-06 14:53] LABS: ALB/GLOB RATIO 1.3 (1.0-2.1); ALBUMIN 4.1 g/dL (3.5-5.0); ALT/SGPT 18 U/L (9-52); AMYLASE 80 U/L (30-110); AST/SGOT 24 U/L (14-36); BLOOD UREA NITROGEN 15 mg/dL (7-17); CALCIUM 9.3 mg/dl (8.6-10.4); GFR NON-AFRICAN AMERICAN > 60; LIPASE 168 U/L (23-300)
[2019-01-06 15:13] LABS: RENAL EPITHELIAL 1 /hpf (0-3); SQUAMOUS EPITHIAL 2 /hpf (0-5)
--- NOTE | 2019-01-06 15:21 | RAD ---
HISTORY: fever COMPARISON: Chest x-ray performed 10/12/17 TECHNIQUE: Chest, one view. FINDINGS: Examination limited by habitus. LUNGS: No focal consolidation. Please note that chest x-ray has limited sensitivity for the detection of pulmonary masses. PLEURA: No significant pleural effusion identified. No definite pneumothorax . CARDIOVASCULAR: Borderline cardiomegaly. Faint atherosclerotic calcification of the aorta. OSSEOUS STRUCTURES: Degenerative changes. VISUALIZED UPPER ABDOMEN: Unremarkable. OTHER FINDINGS: None. IMPRESSION: No focal consolidation.
--- NOTE | 2019-01-06 15:38 | CT ---
Date of service: 01/06/2019 CT chest without IV contrast Indication: cough for 6 months Technique: Contiguous axial images were obtained through the chest without intravenous contrast enhancement. Sagittal and coronal reconstructions were generated and reviewed. This CT exam was performed using 1 or more of the following dose reduction techniques: Automated exposure control, adjustment of the MAA and/or kV according to patient size, and/or use of iterative reconstruction technique. Radiation dose (DLP): 598.65 MGy-cm. Comparison: Chest x-ray performed 01/06/19 Findings: Visualized portions of the inferior thyroid gland demonstrates evidence of 12 mm hypodense nodule at the right lower pole with thin peripheral calcification. The mediastinal and hilar vascular structures appear within normal limits. The heart appears within normal limits of size. Coronary artery calcifications. Atherosclerotic calcifications of the aorta. Sub cm axillary lymph nodes, nonspecific. No focal consolidation. No pleural effusion. No pneumothorax. No suspicious pulmonary nodules measuring greater than 5 mm. Small hiatal hernia. Limited visualization of the noncontrast upper abdomen: Partially imaged 9 mm exophytic right renal hypodense lesion. Exophytic left upper pole 18 mm hypodense heterogeneous lesion with peripheral calcification measures approximately 7 Hounsfield units internally suspected to reflect complex cyst. Partially imaged hypoattenuation of the liver consistent with hepatic steatosis. 11 mm hypodensity hypodense right hepatic lesion measures approximately 2 Hounsfield units consistent with a cyst. Osseous demineralization. Degenerative changes. Mild kyphosis. Impression: No focal consolidation. No pleural effusion. No pneumothorax. 12 mm hypodense nodule noted at the included right inferior lower pole thyroid gland with thin peripheral calcification. Patient underwent thyroid biopsy 05/12/18; correlate clinically. Too small to characterize partially imaged right renal hypodensity; statistically likely a cyst. 11 mm suspected complex left upper pole cyst. Recommend further evaluation with renal ultrasound. Partially imaged hepatic steatosis. 11 mm right hepatic lobe cyst.
--- NOTE | 2019-01-06 17:36 | C.PDOC ---
History Of Present Illness Patient is a 68 year old female who presents to the ED for evaluation of a cough that has been present for the past 6 months in addition to abdominal cramping, chills, headache, and feelings of feverishness since this morning. patient reports that she took Motrin in the morning and decided to come to the ED. She also reports that 1 day ago she saw for her cough and he gave her a referral for a CT Chest without contrast. Time Seen by Provider: 01/06/19 13:49 Chief Complaint (Nursing): Abdominal Pain History Per: Patient History/Exam Limitations: no limitations Onset/Duration Of Symptoms: Hrs Current Symptoms Are (Timing): Still Present Recent travel outside of the [place]: No Additional History Per: Patient Past Medical History Reviewed: Historical Data, Nursing Documentation, Vital Signs Vital Signs: Last Vital Signs Temp 99.7 F H 01/06/19 15:53 Pulse 72 01/06/19 15:53 Resp 18 01/06/19 15:53 BP 115/62 01/06/19 15:53 Pulse Ox 95 01/06/19 15:53 - Medical History PMH: Asthma (NEVER HOSPITALIZED- "VERY RARE-NO MEDS."), CVA, HTN, Hyperchole sterolemia (controlled with diet) Denies: Chronic Kidney Disease Surgical History: Endoscopy - [facility] Procedures APPLICATION OF SPLINT (12/13/05) DX ULTRASOUND-HEAD/NECK (12/11/14) ENDOSCOPIC CONTROL OF GASTRIC OR DUODENAL BLEEDING (09/30/13) ESOPHAGOGASTRODUODENOSCOPY [EGD] W/CLOSED BIOPSY (09/30/13) MEASURE OF CARDIAC SAMPL & PRESSURE, L HEART, PERC APPROACH (05/20/17) PERCUTAN NEEDLE BX OF THYROID GLAND (12/11/14) PLAIN RADIOGRAPHY OF LEFT HEART USING OTHER CONTRAST (05/20/17) PLAIN RADIOGRAPHY OF MULT COR ART USING OTH CONTRAST (05/20/17) TETANUS TOXOID ADMINIST (12/12/05) Family History: States: Unknown Family Hx - Social History Hx Tobacco Use: No Hx Alcohol Use: No Hx Substance Use: No - Immunization History Hx Tetanus Toxoid Vaccination: No Hx Influenza Vaccination: No Hx Pneumococcal Vaccination: No Review Of Systems Except As Marked, All Systems Reviewed And Found Negative. Constitutional: Positive for: Fever, Chills Respiratory: Positive for: Cough Gastrointestinal: Positive for: Abdominal Pain (cramps) Neurological: Positive for: Headache Physical Exam - Physical Exam Appears: Non-toxic, No Acute Distress Skin: Normal Color, Warm, Dry Head: Atraumatic, Normacephalic Eye(s): bilateral: Normal Inspection Oral Mucosa: Moist Neck: Normal ROM, Supple Chest: Symmetrical, No Deformity Cardiovascular: Rhythm Regular, No Murmur Respiratory: Normal Breath Sounds, No Rales, No Rhonchi, No Wheezing Gastrointestinal/Abdominal: Soft, No Tenderness Neurological/Psych: Oriented x3, Normal Speech, Normal Cognition ED Course And Treatment - Laboratory Results Result Diagrams: 01/06/19 14:34 01/06/19 14:34 Lab Results: Total Bilirubin 0.4 mg/dL (0.2-1.3) 01/06/19 14:34 AST 24 U/L (14-36) 01/06/19 14:34 ALT 18 U/L (9-52) 01/06/19 14:34 Alkaline Phosphatase 89 U/L (38-126) 01/06/19 14:34 Total Protein 7.2 g/dL (6.3-8.3) 01/06/19 14:34 Albumin 4.1 g/dL (3.5-5.0) 01/06/19 14:34 Globulin 3.2 gm/dL (2.2-3.9) 01/06/19 14:34 Albumin/Globulin Ratio 1.3 (1.0-2.1) 01/06/19 14:34 Amylase 80 U/L (30-110) 01/06/19 14:34 Lipase 168 U/L (23-300) 01/06/19 14:34 Urine Color Yellow (YELLOW) 01/06/19 14:34 Urine Clarity Clear (Clear) 01/06/19 14:34 Urine pH 5.5 (5.0-8.0) 01/06/19 14:34 Ur Specific [place] > 1.030 (1.003-1.030) H 01/06/19 14:34 Urine Protein Negative mg/dL (NEGATIVE) 01/06/19 14:34 Urine Glucose (UA) Negative mg/dL (Normal) 01/06/19 14:34 Urine Ketones Negative mg/dL (NEGATIVE) 01/06/19 14:34 Urine Blood 2+ (NEGATIVE) H 01/06/19 14:34 Urine Nitrate Negative (NEGATIVE) 01/06/19 14:34 Urine Bilirubin Negative (NEGATIVE) 01/06/19 14:34 Urine Urobilinogen 0.2 mg/dL (0.2-1.0) 01/06/19 14:34 Ur Leukocyte Esterase Negative [place]/uL (Negative) 01/06/19 14:34 Urine WBC (Auto) 3 /hpf (0-5) 01/06/19 14:34 Urine RBC (Auto) 5 /hpf (0-3) H 01/06/19 14:34 Ur Squamous Epith Cells 2 /hpf (0-5) 01/06/19 14:34 Ur Renal Epithelial Cell 1 /hpf (0-3) 01/06/19 14:34 O2 Sat by Pulse Oximetry: 95 (on RA) Pulse Ox Interpretation: Normal - CT Scan/US CT Chest Other Rad Studies (CT/US): Read By Radiologist, Radiology Report Reviewed CT/US Interpretation: Date of service: 01/06/2019. CT chest without IV contrast. Indication: cough for 6 months. Technique: Contiguous axial images were obtained through the chest without intravenous contrast enhancement. Sagittal and coronal reconstructions were generated and reviewed. This CT exam was performed using 1 or more of the following dose reduction techniques: Automated exposure control, adjustment of the MAA and/or kV according to patient size, and/or use of iterative reconstruction technique. . Radiation dose (DLP): 598.65 MGy-cm. Comparison: Chest x-ray performed 01/06/19. Findings: Visualized portions of the inferior thyroid gland demonstrates evidence of 12 mm hypodense nodule at the right lower pole with thin peripheral calcification. The mediastinal and hilar vascular structures appear within normal limits. The heart appears within normal limits of size. Coronary artery calcifications. Atherosclerotic calcifications of the aorta. Sub cm axillary lymph nodes, nonspecific. No focal consolidation. No pleural effusion. No pneumothorax. No suspicious pulmonary nodules measuring greater than 5 mm. Small hiatal hernia. Limited visualization of the noncontrast upper abdomen: Partially imaged 9 mm exophytic right renal hypodense lesion. Exophytic left upper pole 18 mm hypodense heterogeneous lesion with peripheral calcification measures approximately 7 Hounsfield units internally suspected to reflect complex cyst. Partially imaged hypoattenuation of the liver consistent with hepatic steatosis. 11 mm hypodensity hypodense right hepatic lesion measures approximately 2 Hounsfield units consistent with a cyst. . Osseous demineralization. Degenerative changes. Mild kyphosis. Impression: No focal consolidation. No pleural effusion. No pneumothorax. 12 mm hypodense nodule noted at the included right inferior lower pole thyroid gland with thin peripheral calcification. Patient underwent thyroid biopsy 05/12/18; correlate clinically. Too small to characterize partially imaged right renal hypodensity; statistically likely a cyst. 11 mm suspected complex left upper pole cyst. Recommend further evaluation with renal ultrasound. Partially imaged hepatic steatosis. 11 mm right hepatic lobe cyst. Progress Note: Plan: CT Chest. Labs. Urinalysis. Serology Influenza. Blood Culture. Urine Culture. Zithromax 500mg PO. CT Chest is negative. Spoke with who said to treat patient for bronchitis and inform patient to follow up with him. Disposition - Disposition Referrals: Ashley Major MD [Staff Provider] - Disposition: HOME/ ROUTINE Disposition Time: 17:58 Condition: STABLE Additional Instructions: Follow up with within 2-3 days. Return to ED if feel worse. Prescriptions: Benzonatate [Tessalon Perles] 2 tab PO TID #60 sgl Azithromycin [Zithromax] 250 mg PO DAILY #4 tab Instructions: Acute Bronchitis Forms: [employer] (Syrian) - Clinical Impression Clinical Impression: Bronchitis - PA / CRANE OPERATOR / Resident Statement MD/DO has examined the patient and agrees with the treatment plan. - Scribe Statement The provider has reviewed the documentation as recorded by the Waleska Carlos All medical record entries made by the Marisibdixon were at my direction and personally dictated by me. I have reviewed the chart and agree that the record accurately reflects my personal performance of the history, physical exam, medical decision making, and the department course for this patient. I have also personally directed, reviewed, and agree with the discharge instructions and disposition.
[2019-01-06 18:19] VITALS: BP 155/82; PULSE 73; RESP 17; TEMP 99.4
[2019-01-06 19:20] VITALS: O2SAT 95
== END 2019-01-06 18:26 | disposition home or self-care (01) ==
LOC: C.ER 13:28
DX: J40 Bronchitis, not specified as acute or chronic (principal)

== ENCOUNTER 2019-01-16 07:10 | Outpatient (CLI) | payer OTHER | END 2019-01-16 07:11 | disposition home or self-care (01) | LOC: C.LAB 07:10 | DX: I10 Essential (primary) hypertension (principal); M51.9 Unspecified thoracic, thoracolumbar and lumbosacral intervertebral disc disorder; I70.0 Atherosclerosis of aorta ==